=== PATIENT | male | born 1955 | race Caucasian/White ===

== ENCOUNTER 2024-06-16 23:14 | Observation (INO) | payer OTHER, SELFPAY ==
[2024-06-16 18:22] VITALS: BP 146/76
[2024-06-16 18:46] LABS: % Basophils 0.6 % (0-2); % Eosinophils 0.9 % (0-6); % Immature Granulocytes 0.7 % (0-0.5); % Lymphocytes 11.5 % (20.5-51.1); % Monocytes 5.3 % (1.7-9.3); Absolute Basophils 0.1 10^3/uL (0-0.2); Absolute Eosinophils 0.1 10^3/uL (0-0.7); Absolute Immature Granulocytes 0.1 10^3/uL (0-0.05); Absolute Lymphocytes 1.1 10^3/uL (1.2-3.4); Absolute Monocytes 0.5 10^3/uL (0.1-0.6); Absolute Neutrophils 7.7 10^3/uL (1.4-6.5); Hematocrit 40.7 % (39.0-52.0); Hemoglobin 13.8 g/dL (13.0-18.0); Mean Corp Hgb Conc. 33.9 g/dL (33.0-37.0); Mean Corpuscular Hgb 28.9 pg (27.0-31.0); Mean Corpuscular Volume 85.1 fL (80.0-94.0); Mean Platelet Volume 9.2 fL (7.4-10.4); Nucleated Red Blood Cells % 0 % (-); Platelet Count 351 10^3/uL (130-400); Red Blood Cell Count 4.78 10^6/uL (4.70-6.10); Red Cell Dist. Width 11.9 % (11.5-14.5); White Blood Cell Count 9.6 10^3/uL (4.8-10.8)
[2024-06-16 19:09] LABS: ALT (SGPT) 28 U/L (0-50); AST (SGOT) 26 U/L (17-59); Alkaline Phosphatase 73 U/L (38-126); Blood Urea Nitrogen 26 mg/dl (9-20); Calcium 9.6 mg/dl (8.4-10.2); Carbon Dioxide 27 mmol/L (22-30); Chloride 102 mmol/L (98-107); Glucose 98 mg/dl (70-99); Potassium 4.3 mmol/L (3.5-5.1); Sodium 137 mmol/L (135-145); eGFR > 60.00
[2024-06-16 21:14] VITALS: BP 131/88
--- NOTE | 2024-06-16 21:42 | ED.GENMED ---
History of Present Illness
General
Chief Complaint: Rectal Bleeding
Source: patient and spouse
Exam Limitations: dementia
Time Seen by Provider: 06/16/24 21:17
History of Present Illness
History of Present Illness:
This is a 68-year-old male who presents after he had an episode of vomiting dark/black vomitus Saturday night. They were out to dinner and he started belching and vomiting in a car and then later that night vomited the dark vomitus. Today he
followed up with the PCP who did a rectal exam found him that he positive stools. states that PCP advised him to come to the emergency department. She states he otherwise has been normal. He has had no further vomiting. he is not
anticoagulated. He did take a dose of ibuprofen today but does not take it regularly. denies any Pepto-Bismol or iron supplements. Patient offers no complaints
Past History
Past History
ED Past Medical History: Other (Dementia)
Phy Exam
Physical Exam
Physical Exam:
CONSTITUTIONAL Patient alert and oriented to person, place . Well-appearing. Vital signs reviewed.
HEAD atraumatic, normocephalic.
EYES eyelids normal to inspection, Extraocular muscles intact, Conjunctiva normal, Sclera normal.
NECK normal range of motion, Trachea midline, no jugular venous distention.
RESPIRATORY CHEST No respiratory distress noted, Chest expansion equal
ABDOMEN abdomen nontender, Bowel sounds normal. No distention.
Rectal exam strongly heme positive melena/dark stool
BACK normal inspection, no obvious deformities
UPPER EXTREMITY range of motion normal, Motor strength normal, no cyanosis, no edema.
LOWER EXTREMITY range of motion normal, Motor strength normal, no cyanosis, no edema.
NEURO Speech normal, No focal motor deficits, Cranial Nerves intact to screening exam.
SKIN skin warm, dry, and normal in color.
Course
Orders/Labs/Results
Orders:
Orders
06/16/24 18:35
CMP [Comprehensive Metabolic Panel] Urgent
Complete Blood Count/With Diff Urgent
06/16/24 21:39
Pantoprazole [Protonix IV] 40 mg IV NOW STA
Abnormal Lab Results
06/16/24
18:35
Abs Immat Gran (auto) 0.1 H 10^3/uL
(0-0.05)
Absolute Neuts (auto) 7.7 H 10^3/uL
(1.4-6.5)
Absolute Lymphs (auto) 1.1 L 10^3/uL
(1.2-3.4)
Immature Gran % 0.7 H %
(0-0.5)
Neutrophils % 81.0 H %
(42.2-75.2)
Lymphocytes % 11.5 L %
(20.5-51.1)
BUN 26 H mg/dl
(9-20)
Total Protein 6.0 L g/dl
(6.3-8.2)
06/16/24 18:35
06/16/24 18:35
Vital Signs
Initial and Last Documented VS:
Initial Vital Signs
Temp Pulse Resp BP Pulse Ox
98.5 F 82 18 146/76 98
06/16/24 18:22 06/16/24 18:22 06/16/24 18:22 06/16/24 18:22 06/16/24 18:22
Last Documented Vital Signs
Temp Pulse Resp BP Pulse Ox
98.5 F 82 18 131/88 100
06/16/24 18:22 06/16/24 18:22 06/16/24 18:22 06/16/24 21:14 06/16/24 21:15
MDM/Problems Addressed
Differential Diagnosis Includes:
Gastric erosions, duodenal ulcer, gastric ulcer
MDM/Problems Addressed:
GI bleed
*Pulse Oximetry
Patient hypoxic: no
*Master Control Supervisor Interpretation
Rate: normal
Interpretation: normal
Rhythm: sinus
*Critical Care Note
Total Time (30-74mins, 75-104mins- exclusive of procedures): Not Applicable
Data Reviewed
Source: patient and family
Further Testing Considered But Not Given:
Consider CT but abdomen soft nontender
Patient Management
Discussion with other providers: Quitline Counselor (Case cussed with gastroenterology)
Escalation/DeEscalation of care consider admission/obs:
68-year-old male who presents with GI bleeding. Does have a stable hemoglobin. Did have black vomitus earlier in the week. Now with dark/black stools. IV Protonix given. Given his dementia, will admit for close monitoring and repeat hemoglobin.
ED Attending Note
-
Portions of this chart may have been created with voice recognition software.� Occasional wrong word or��sound alike� substitutions may have occurred due to the inherent limitations of voice recognition software.
Discharge Plan
Departure
Patient Disposition: Admit
Date of Disposition: 06/16/24
Time of Disposition: 21:57
Presentation/result/management discussed w/ accepting MD/DO: Hospitalist
Discharge Problem:
Acute upper gastrointestinal bleeding
Prescriptions:
No Action
donepezil 23 mg Tablet
23 mg PO HS
Referrals:
Evon Conti CRNP [Family Provider] -
Interventions
Interventions:
*Risk Screen - Suicide Last Done: 06/16/24 18:22
*General Assessment Last Done: 06/16/24 18:22
*Neglect/Abuse Screening Last Done: 06/16/24 21:19
*ED COVID-19 Vaccine History Last Done: 06/16/24 18:22
XK-Rsuaes-Gveqijuquh Assessment Last Done: 06/16/24 21:19
ED- Cardiac Assessment Last Done: 06/16/24 21:19
ED- Pulmonary Assessment Last Done: 06/16/24 21:19
Discharge Date and Time
Print Language: KAZAKH
[2024-06-16 22:00] VITALS: BP 112/64
[2024-06-16 22:13] VITALS: BMI 21.7
--- NOTE | 2024-06-16 22:14 | HPS.HSE ---
Addendum entered and electronically signed by Dutch Dang DO 06/16/24 23:34:
Patient seen and examined independently. Agree with findings and plan as set forth by HELLEN Ro.
Patient is a 68y M with PMH significant for Lewy Body Dementia who presents to ED for evaluation of GI bleeding. Patient had episode of emesis Saturday PM that was dark appearing. Yesterday he complained of sore throat and cough. Today he was
seen by his PCP for evaluation and rectal exam done in the office there was heme positive. He was sent to the ED for evaluation. Here in the ED patient has dark, heme positive stool. Hgb / vitals are stable.
Ass:
GI Bleeding
Lewy Body Dementia
Plan:
Observe overnight for further evaluation and treatment.
IV PPI.
NPO.
Follow for any recurrent blood loss / emesis / etc.
GI evaluation in the AM for additional recommendations.
Original Note:
Family Physician
-
Family Physician: HELLEN Ramirez
Chief Complaint
-
dark emesis
History of Present Illness
Patient is a 68-year-old male with past medical history significant for dementia who presented to [facility] ED for evaluation of dark/black emesis Saturday evening. Patients at bedside to assist with HPI and history. She reports that
they went to dinner Saturday night and on the card ride home patient had an episode of dark emesis and then a second time later that night at home. He has not had any emesis since then. Yesterday patient complained of sore through and cough, so this
morning she scheduled him an appointment at the primary care provider who heme tested patients stool and was positive. Primary referred patient to ED for evaluation and treatment. Denies any fever, chills, shortness of breath, chest pain,
constipation, diarrhea or urinary symptoms.
Medical History
Past Medical History
Past Medical History: Reports Other
Additional Past Medical History:
dementia
Past Surgical History: Reports Other
Additional Past Surgical History:
b/l shoulder surgery
Social History
Unable to obtain full social history at this time due to: Dementia
Tobacco: Former Smoker
Alcohol: Occasional
Drug: None
Personal:
Living: With Family
Employment: Retired
Family History
Family History: Other (Father: Alzheimer's )
Allergies / Home Medications
Allergies reflects when Allergies were last updated in [employer].
Home Medications with original date entered in [employer]
Allergy/Medication List:
Allergies
Allergy/AdvReac Type Severity Reaction Status Date / Time
No Known Allergies Allergy Unverified 06/16/24 18:25
Home Medications
donepezil 23 mg tablet 23 mg PO HS 06/16/24
Review of Systems
-
History Source: Patient
Constitutional: Reports No Symptoms
EENT: Reports No Symptoms
Respiratory: Reports No Symptoms
Cardiac: Reports No Symptoms
Abdomen/GI: Reports Nausea and Vomiting
: Reports No Symptoms
Musculoskeletal: Reports No Symptoms
Skin: Reports No Symptoms
Neurological: Reports No Symptoms
Endocrine: Reports No Symptoms
Hematologic/Lymphatic: Reports No Symptoms
Psych: Reports No Symptoms
Physical Exam
Vital Signs
Vital Signs
Temp Pulse Resp BP Pulse Ox
98.5 F 82 18 131/88 100
06/16/24 18:22 06/16/24 18:22 06/16/24 18:22 06/16/24 21:14 06/16/24 21:15
Physical Exam
General: Well Developed, Well Nourished, No Apparent Distress and Comfortable
HEENT: NormoCephalic, Moist mucous membranes, Atraumatic, [place] Conjunctivae, Nose Appears Normal and Ears Appear Normal
Respiratory: Clear and Non Labored Respirations
Cardiac: S1/S2 and Regular Rhythm; No Murmur, Rub or Gallop
Breast: Deferred by me
GI: Soft, Non Tender, Non Distended and Normal Bowel Sounds; No Organomegaly
Rectal: Hem Positive
Genito-urinary: Deferred by me
Musculoskeletal: No Clubbing, No Cyanosis and No Edema
Skin: Warm and IV/Catheter Site; No Rash
Neuro: Awake, Alert, AO x 3 and Nonfocal/grossly intact
Psych: Calm and Intact Judgment/Insight
Laboratory Results
-
06/16/24 18:35
06/16/24 18:35
Laboratory Results
Total Bilirubin 1.0 mg/dl (0.2-1.3) 06/16/24 18:35
AST 26 U/L (17-59) 06/16/24 18:35
ALT 28 U/L (0-50) 06/16/24 18:35
Alkaline Phosphatase 73 U/L (38-126) 06/16/24 18:35
Data Reviewed
-
Lab Data: Labs Reviewed by me (Hgb 13.8, Hct 40.7)
Impression/Plan
-
IMPRESSION/PLAN:
#GI bleed
episode of dark/black emesis Saturday night
stool heme positive in primary care office today
Hgb 13.8, Hct 40.7
- admit to telemetry
- IV Protonix
- NPO
- consult GI
#dementia
- continue donepezil
Code status: code status
DVT prophylaxis: SCDs
[2024-06-16] MEDS: PROTONIX IV 40 MG IV (22:18)
[2024-06-17] VITALS (13 sets, daily range): BP systolic 14–140; BP diastolic 56–86; BMI 21.0
--- NOTE | 2024-06-17 06:57 | CON.GI ---
Addendum entered and electronically signed by Joanne Orta MD 06/17/24 12:33:
I saw and examined the patient.
The BOW STRING MAKER's note was reviewed and I agree with the note.
Comment: This is a 68-year-old male with past medical history of Lewy body dementia who had an episode of dark emesis on Saturday night and was seen by PCP and was noted to have heme positive stools and was also noted to have heme positive dark
stools in the ER and admission hemoglobin is 13.8 with a mildly elevated BUN. Patient's is able to provide history. He rarely uses NSAIDs and did take 1 yesterday but no prior history of upper GI bleed. His last colonoscopy was a few years
ago per over 5 years ago. He also has had a almost a 50 pound weight loss since his dementia diagnosis in 2022 as per his appetite is pretty good. He does have occasional reflux and uses Tums as needed.
Assessment and plan coffee-ground emesis on Saturday and also has had heme positive stools possible related to esophagitis vs gastritis or PUD. He only has occasional use of NSAIDs and was not on aspirin either prior to admission. Will schedule
him for an endoscopy. He is currently on Protonix twice daily. Hb stable
Original Note:
Consultation
-
Date/Time Consultation Requested: 06/17/24 0140
Date/Time Consultation Performed: 06/17/24 0700
Requesting Provider: HELLEN Ro
Performing Provider: HELLEN Ng, Joanne Orta MD
Reason for Consultation: hematemesis/heme + dark stools
Medical History
Chief Complaint / HPI
Chief Complaint: vomtiing dark emesis
History of Present Illness:
Pt is a 68yo with hx lewy body dementia and prior shoulder surgery with onset of vomiting dark emesis on Saturday night. He was seen by PCP and noted with heme + stools. In ER noted with heme + melena. On admission hbg 13.8 with BUN 26. In
review with patient and family no hx prior GI bleeding. Rare NSAID use. Occasional GERD with tums use as needed and occasional pill dysphagia. Pt has has 55 lb wt loss since dementia diagnosis in 2022. Pt otherwisse denies odynophagia,
abdominal pain, constipation with last stool day prior to admission, blood or black stools. No hx EGD. Last colonoscopy years ago and does not recall any abnormal finding. No anticoagulation prior to admission.
Past Medical History
Past Medical History: Other (lewy body dementia)
Past Surgical History: Orthopedic (shoulder surgery )
Social History
Tobacco: Former Smoker
Alcohol: None
Drug: None
Personal:
Living: With Family
Employment: Retired
Family History
Family History: Other (no family hx colon CA or polyps)
Allergies / Home Medications
Allergy/AdvReac Type Severity Reaction Status Date / Time
No Known Allergies Allergy Unverified 06/16/24 18:25
�Medication �Instructions �Recorded
donepezil 23 mg tablet 23 mg PO HS 06/16/24
Review of Systems
-
Unable to obtain full review of systems at this time due to: Dementia
History Source: Patient and Family
Constitutional: Reports Weight Loss ( 55 lbs with dementia diagnosis )
EENT: Reports No Symptoms
Respiratory: Reports No Symptoms
Cardiac: Reports No Symptoms
Abdomen/GI: Reports Nausea, Vomiting (with dark emesis ), Black Stools and Other (occasional GERD and pill dysphagia )
: Reports No Symptoms
Musculoskeletal: Reports No Symptoms
Skin: Reports No Symptoms
Neurological: Reports Weakness
Endocrine: Reports No Symptoms
Hematologic/Lymphatic: Reports Bleeding
Vital Signs
Temp Pulse Resp BP Pulse Ox
98.5 F 82 18 112/64 99
06/16/24 18:22 06/16/24 18:22 06/16/24 18:22 06/16/24 22:00 06/16/24 22:30
Physical Exam
Exam
General: Well Developed, Well Nourished and No Apparent Distress
HEENT: Normocephalic and Anicteric
Respiratory: Clear
Cardiac: Regular Rhythm
GI: Soft, Non Tender and Non Distended
Musculoskeletal: No Clubbing and No Cyanosis
Skin: Warm and Dry
Neuro: Awake, Alert and Other (answers some one word answers and some nodding to questions , noted with open mouth for most of exam )
Psych: Calm
Results
WBC Cancelled 06/17/24 06:36
Hgb Cancelled 06/17/24 06:36
Hct Cancelled 06/17/24 06:36
MCV Cancelled 06/17/24 06:36
Plt Count Cancelled 06/17/24 06:36
Absolute Neuts (auto) 7.7 10^3/uL (1.4-6.5) H 06/16/24 18:35
Sodium 137 mmol/L (135-145) 06/16/24 18:35
Potassium 4.3 mmol/L (3.5-5.1) 06/16/24 18:35
Chloride 102 mmol/L (98-107) 06/16/24 18:35
Carbon Dioxide 27 mmol/L (22-30) 06/16/24 18:35
BUN 26 mg/dl (9-20) H 06/16/24 18:35
Creatinine 0.9 mg/dL (0.7-1.3) 06/16/24 18:35
Calcium 9.6 mg/dl (8.4-10.2) 06/16/24 18:35
Total Bilirubin 1.0 mg/dl (0.2-1.3) 06/16/24 18:35
AST 26 U/L (17-59) 06/16/24 18:35
ALT 28 U/L (0-50) 06/16/24 18:35
Alkaline Phosphatase 73 U/L (38-126) 06/16/24 18:35
Diagnostic Image Results:
Prior GI Procedures:
EGD: none
Colonoscopy: years ago did not recall any abnormal findings
Assessment / Plan
-
Pt is a 68yo with hx lewy body dementia and prior shoulder surgery with onset of vomiting dark emesis on Saturday night. He was seen by PCP and noted with heme + stools. In ER noted with heme + melena. On admission hbg 13.8 with BUN 26. Rare
NSAID use and no Anticoagulation use prior to admission. No hx EGD in past.
-hematemesis/heme + melena in ER
-lewy body dementia
-wt loss since dementia diagnosis
-occasional GERD - tums PRN
-occasional pill dysphagia
PLAN:
etiology of bleeding related to PUD, esophagitis, vs other
plan for EGD today
cont PPI BID
cont NPO
NSAID avoidance
monitor for recurrent symptoms
if EGD neg consider colonoscopy but unsure if patient would be able to proceed with prep
updated and will be present to consent for procedure with hx dementia
-
-
Thank you for consultation and allowing me to participate in the patient's care. Please call the [employer] GI physician during the after hours with any questions or concerns.
--- NOTE | 2024-06-17 08:08 | W.PN.HOSP.TC ---
Today's Communication/Plan
-
Discharge home
Assessment / Plan
Assessment / Plan
HPI: 68y M with PMH significant for Lewy Body Dementia who presents to ED for evaluation of GI bleeding. Patient had episode of emesis Saturday PM that was dark appearing. Yesterday he complained of sore throat and cough. Today he was seen by
his PCP for evaluation and rectal exam done in the office there was heme positive. He was sent to the ED for evaluation. Here in the ED patient has dark, heme positive stool. Hgb / vitals are stable.
#Hematemesis
episode of dark/black emesis Saturday night
stool heme positive in primary care office today
Appreciate GI input, 06/17 EGD shows esophagitis, hiatal hernia, nonbleeding duodenal ulcers with no stigmata of bleeding
GI recommends pantoprazole 40 mg twice a day for 4 weeks, then daily
Patient/ counseled to avoid all dycq-dor-zneilbt NSAIDs
Medically stable for discharge today
Follow-up with GI in the office in 4-6 weeks
#Dementia
Continue donepezil
DVT prophylaxis: SCDs
Updated on phone 06/17
Physical Exam
General: No acute distress
HEENT: Normocephalic, Atraumatic, EOMI, MMM
Respiratory: Clear to Auscultation bilaterally
Cardiac: Normal S1/S2, Regular Rate and Rhythm
GI: Soft, Nontender, Nondistended, Normal Bowel Sounds
Extremities: No Clubbing, Cyanosis, or Edema
Neuro: Pleasantly confused
Anticipated Discharge: Today
Subjective/Interval History
-
Date of Service: June 17, 2024
No recurrence of hematemesis. No fever, no vomiting.
Objective Data
-
Labs:
Laboratory Results
06/17/24
06:36
WBC Cancelled
Hgb Cancelled
Hct Cancelled
Plt Count Cancelled
Vital Signs:
Vital Signs
Temp Pulse Resp BP Pulse Ox
98.5 F 82 18 112/64 99
06/16/24 18:22 06/16/24 18:22 06/16/24 18:22 06/16/24 22:00 06/16/24 22:30
[2024-06-17] MEDS: PROTONIX IV 40 MG IV (09:06)
[2024-06-17] MEDS: NSS (PRESERVATIVE FREE) 10 ML IV (09:06)
[2024-06-17 13:12] LABS: Hematocrit 36.5 % (39.0-52.0); Hemoglobin 12.5 g/dL (13.0-18.0); Mean Corp Hgb Conc. 34.2 g/dL (33.0-37.0); Mean Corpuscular Hgb 29.1 pg (27.0-31.0); Mean Corpuscular Volume 85.1 fL (80.0-94.0); Mean Platelet Volume 9.1 fL (7.4-10.4); Platelet Count 321 10^3/uL (130-400); Red Blood Cell Count 4.29 10^6/uL (4.70-6.10); Red Cell Dist. Width 11.9 % (11.5-14.5); White Blood Cell Count 6.5 10^3/uL (4.8-10.8)
--- NOTE | 2024-06-17 16:24 | TRANSFER ---
Pt transferred to 335 from PACU. Transferred via bed. VSS, oriented to room. at bedside. answered admission questions, pt Ax1 (self). On room air, no complaints of pain at this time.
--- NOTE | 2024-06-17 17:27 | W.DCSUMMARY ---
Discharge Summary
Discharge Data
Date of Admission: 06/16/24
Date of Discharge: 06/17/24
-
Pending Results: No
Hospital Course
Discharge diagnosis:
Hematemesis
Lucio's esophagus with esophagitis
Nonbleeding duodenal ulcers
Hiatal hernia
Lewy body dementia
Consults: GI
Procedures:
06/17/2024 EGD
Impression: - [place]-colored mucosa suggestive of short-segment
Lucio's esophagus. Biopsied.
- [place] Grade B reflux esophagitis with no bleeding.
- Non-obstructing Schatzki ring.
- Small hiatal hernia.
- Non-bleeding duodenal ulcers with no stigmata of
bleeding.
- Normal first portion of the duodenum and second
portion of the duodenum.
Recommendation: - Continue present medications.
- Await pathology results.
- Repeat upper endoscopy for surveillance based on
pathology results.
- Use Protonix (pantoprazole) 40 mg PO BID x 4 weeks
and then daily.
- No ibuprofen, naproxen, or other non-steroidal
anti-inflammatory drugs.
Hospital course:
68-year-old male with a past medical history of Lewy body dementia was admitted for 1 episode of hematemesis that occurred 2 days prior to admission. Patient was seen in conjunction with GI. He had an EGD which showed Lucio's esophagus,
esophagitis, hiatal hernia, nonbleeding duodenal ulcers with no stigmata of bleeding. Patient was treated with IV Protonix. GI recommends discharge on Protonix 40 mg twice a day for 4 weeks, then daily. He and his have been counseled to
avoid all yglt-xqt-oefmunc NSAID medications. He needs to follow-up with GI in the office in 4-6 weeks, as well as his primary care doctor in 1 week.
Disposition: Home self-care
Discharge planning: Required 39 minutes
Discharge Plan
-
Patient Disposition: Home (Routine Discharge)
Discharge Diagnosis/Procedures: Hematemesis, esophagitis, duodenal ulcer, dementia
Condition: Good
Diet: Regular
Activity: As tolerated
Activity Restrictions/Additional Instructions:
Please avoid all ahjx-gim-qghvmwk NSAID medications such as ibuprofen, naproxen, Aleve, Motrin, Advil.
These medications will cause bleeding in your stomach.
GI recommends pantoprazole 40 mg twice a day for 4 weeks, then daily.
Follow-up with GI in the office in 4-6 weeks, and your PCP in 1 week.
Referrals:
Evon Conti CRNP [Family Provider] - in one week
Joanne Orta MD [Active] - in four to six weeks
Prescriptions:
New
pantoprazole 40 mg tablet,delayed release (DR/EC)
40 mg PO BID 28 Days Qty: 56 0RF
Continued
donepezil 23 mg Tablet
23 mg PO HS
Discharge Orders:
Discharge Patient (As Directed); Ordered 06/17/24
Ordered By: Nigel Perera
Discharge Date and Time
Discharge Date/Time: 06/17/24 18:36
Print Language: SLOVENIAN
== END 2024-06-17 18:36 | disposition home or self-care (01) ==
LOC: 3 WEST ACU 23:14
PROVIDERS: Emergency Medicine; ADMITTING PHYSICIAN Hospitalist; ATTENDING PHYSICIAN Family Medicine; EMERGENCY PHYSICIAN Emergency Medicine; FAMILY PHYSICIAN Nurse Practitioner Family; OTHER PHYSICIAN Internal Medicine Gastroenterology
PROC: 0DB58ZX Excision of Esophagus, Via Natural or Artificial Opening Endoscopic, Diagnostic (ICD-10-PCS; 2024-06-17)
DX: K21.01 Gastro-esophageal reflux disease with esophagitis, with bleeding (principal); K22.70 Barrett's esophagus without dysplasia; K62.5 Hemorrhage of anus and rectum; K26.4 Chronic or unspecified duodenal ulcer with hemorrhage; F02.80 Dementia in other diseases classified elsewhere, unspecified severity, without behavioral disturbance, psychotic disturbance, mood disturbance, and anxiety; G31.83 Neurocognitive disorder with Lewy bodies; R05.9 Cough, unspecified; J02.9 Acute pharyngitis, unspecified; K44.9 Diaphragmatic hernia without obstruction or gangrene; K22.2 Esophageal obstruction; K22.89 Other specified disease of esophagus; Z87.891 Personal history of nicotine dependence
CPT/HCPCS: 43239; 88305; 80053; 85025; 85027; 87070; G0378

== ENCOUNTER 2024-10-30 21:00 | Emergency (ER) | payer OTHER, SELFPAY ==
[2024-10-30 21:05] VITALS: BP 143/62
[2024-10-30 21:32] LABS: Hematocrit 42.9 % (39.0-52.0); Hemoglobin 14.8 g/dL (13.0-18.0); Mean Corp Hgb Conc. 34.5 g/dL (33.0-37.0); Mean Corpuscular Volume 84.6 fL (80.0-94.0); Nucleated Red Blood Cells % 0 % (-); Platelet Count 291 10^3/uL (130-400); Red Cell Dist. Width 12.4 % (11.5-14.5)
[2024-10-30 21:41] LABS: ALT (SGPT) 20 U/L (0-50); AST (SGOT) 21 U/L (17-59); Albumin 4.8 g/dl (3.5-5.0); Alkaline Phosphatase 64 U/L (38-126); Blood Urea Nitrogen 20 mg/dl (9-20); Calcium 9.8 mg/dl (8.4-10.2); Carbon Dioxide 29 mmol/L (22-30); Chloride 102 mmol/L (98-107); Glucose 123 mg/dl (70-99); Lipase 77 U/L (23-300); Potassium 5.2 mmol/L (3.5-5.1); Sodium 136 mmol/L (135-145); Total Protein 7.0 g/dl (6.3-8.2); eGFR > 60.00
--- NOTE | 2024-10-30 22:56 | ED.GENMED ---
History of Present Illness
<HELLEN Guerrero - Last Filed: 10/31/24 19:28>
General
Chief Complaint: Abdominal Pain
Source: spouse
Exam Limitations: dementia
Time Seen by Provider: 10/30/24 22:11
Nursing documentation reviewed up to this point in time: agreed with
History of Present Illness
History of Present Illness:
Patient is a 69-year-old male who presents to the ER. Patient has a history of, hiatal hernia, nonbleeding duodenal ulcers dementia Lewy bodies dementia, Lucio's esophagus with esophagitis and spouse is giving history. She reports patient
started to complain pain in the right groin around dinnertime and she noticed patient's swelling to the groin before they were getting ready to go to bed. He is not able to give history.
Past History
<HELLEN Guerrero - Last Filed: 10/31/24 19:28>
Past History
ED Past Medical History: Other (Dementia)
Phy Exam
<HELLEN Guerrero - Last Filed: 10/31/24 19:28>
General Physical Exam
General Presentation: no apparent distress
General age: appears stated age
General Skin: warm and dry
General Habitus: normal
General Mental: alert
Gastrointestinal Exam
Gastrointestinal Exam: soft and other (tender firm raised palpable lump to right inguinal region )
Neurological Exam
Neurological Exam: alert
Musculoskeletal Exam
Musculoskeletal Exam: full ROM
Skin Exam
Skin Exam: normal color
Psychiatric Exam
Psychiatric Exam: normal mood/affect
Course
<HELLEN Guerrero - Last Filed: 10/31/24 19:28>
Orders/Labs/Results
Orders:
Orders
10/30/24 21:14
Complete Blood Count/With Diff Urgent
Comprehensive Metabolic Panel Urgent
Lactic Acid Urgent
Lipase Urgent
10/30/24 23:06
0.9% Sodium Chloride 500 ml [Nss] 500 ml IV BOLUS
HYDROmorphone [Dilaudid] 0.5 mg IV NOW STA
10/31/24 00:00
CT Abd/pelvis W Iv Cont Urgent
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
Abnormal Lab Results
10/30/24
21:14
WBC 18.7 H 10^3/uL
(4.8-10.8)
Abs Immat Gran (auto) 0.1 H 10^3/uL
(0-0.05)
Absolute Neuts (auto) 17.1 H 10^3/uL
(1.4-6.5)
Absolute Lymphs (auto) 0.5 L 10^3/uL
(1.2-3.4)
Absolute Monos (auto) 1.0 H 10^3/uL
(0.1-0.6)
Neutrophils % 91.5 H %
(42.2-75.2)
Lymphocytes % 2.4 L %
(20.5-51.1)
Potassium 5.2 H mmol/L
(3.5-5.1)
Glucose 123 H mg/dl
(70-99)
10/30/24 21:14
10/30/24 21:14
Vital Signs
Initial and Last Documented VS:
Initial Vital Signs
Temp Pulse Resp BP Pulse Ox
98.0 F 84 20 143/62 98
10/30/24 21:05 10/30/24 21:05 10/30/24 21:05 10/30/24 21:05 10/30/24 21:05
Last Documented Vital Signs
Temp Pulse Resp BP Pulse Ox
98.0 F 84 20 133/81 98
10/30/24 21:05 10/30/24 21:05 10/30/24 21:05 10/31/24 00:00 10/30/24 22:58
Telecommunications Officer consulted with Physician
Telecommunications Officer consulted with physician?: Yes (jack )
Name of Physician Consulted: Jack
<Quintin Santiago, DO - Last Filed: 10/31/24 01:48>
Orders/Labs/Results
Orders:
Orders
10/30/24 21:14
Complete Blood Count/With Diff Urgent
Comprehensive Metabolic Panel Urgent
Lactic Acid Urgent
Lipase Urgent
10/30/24 23:06
0.9% Sodium Chloride 500 ml [Nss] 500 ml IV BOLUS
HYDROmorphone [Dilaudid] 0.5 mg IV NOW STA
10/31/24 00:00
CT Abd/pelvis W Iv Cont Urgent
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
Abnormal Lab Results
10/30/24
21:14
WBC 18.7 H 10^3/uL
(4.8-10.8)
Abs Immat Gran (auto) 0.1 H 10^3/uL
(0-0.05)
Absolute Neuts (auto) 17.1 H 10^3/uL
(1.4-6.5)
Absolute Lymphs (auto) 0.5 L 10^3/uL
(1.2-3.4)
Absolute Monos (auto) 1.0 H 10^3/uL
(0.1-0.6)
Neutrophils % 91.5 H %
(42.2-75.2)
Lymphocytes % 2.4 L %
(20.5-51.1)
Potassium 5.2 H mmol/L
(3.5-5.1)
Glucose 123 H mg/dl
(70-99)
10/30/24 21:14
10/30/24 21:14
Vital Signs
Initial and Last Documented VS:
Initial Vital Signs
Temp Pulse Resp BP Pulse Ox
98.0 F 84 20 143/62 98
10/30/24 21:05 10/30/24 21:05 10/30/24 21:05 10/30/24 21:05 10/30/24 21:05
Last Documented Vital Signs
Temp Pulse Resp BP Pulse Ox
98.0 F 84 20 133/81 98
10/30/24 21:05 10/30/24 21:05 10/30/24 21:05 10/31/24 00:00 10/30/24 22:58
<HELLEN Guerrero - Last Filed: 10/31/24 19:28>
MDM/Problems Addressed
MDM/Problems Addressed:
Patient is a 69-year-old male with Lewy body dementia brought by for evaluation. Patient was complaining of pain in the right groin. On exam he has an obvious inguinal hernia. Patient was medicated for pain, ice applied and Dr Santiago was
able to successfully reduce it.
Patient is afebrile white count elevated 18,000 normal .
will check CAT scan.
care of pt signed out to ED physician
<HELLEN Guerrero - Last Filed: 10/31/24 19:28>
*Pulse Oximetry
SaO2: 98
Oxygen Mode of Delivery: Room air
Patient hypoxic: no
*Critical Care Note
Total Time (30-74mins, 75-104mins- exclusive of procedures): Not Applicable
<Quintin Santiago DO - Last Filed: 10/31/24 01:48>
Update Note
Update Note:
11:20 PM after IV pain medicine, I was able to reduce the hernia
1:43 AM vision radiology called indicating edema in the right lower quadrant. This is expected given the significant hernia. On multiple reassessments, patient remains well-appearing nontoxic. He no longer has right lower quadrant tenderness.
Discussed outpatient follow-up with general surgery
ED Attending Note
<HELLEN Guerrero - Last Filed: 10/31/24 19:28>
-
Portions of this chart may have been created with voice recognition software.� Occasional wrong word or��sound alike� substitutions may have occurred due to the inherent limitations of voice recognition software.
<Quintin Santiago DO - Last Filed: 10/31/24 01:48>
ED Attending Note
Patient seen and examined by attending physician: Yes
I performed the substantive portion of visit, reviewed & personally made and approve the management plan that is documented in note by myself or STEPHY.: Yes
ED Attending Note:
I have seen and evaluated the patient with a [id number] encounter. I have spoken to the advance practicer provider and involved in the medical history, the physical exam, medical decision making.
Evaluation and management service: agree unless noted differently below.
Results interpretation: agree unless noted differently below.
Focused HPI: 69-year-old male presenting with for evaluation of right groin pain. states this occurred just prior to arrival. states that he does strain often to go to the bathroom
Physical exam: Right inguinal hernia. No skin changes
Medical Decision Making: Will give pain medicine and attempt reduction
Discharge Plan
Departure
Patient Disposition: Home (Routine Discharge)
Date of Disposition: 10/31/24
Time of Disposition: 01:44
Patient with high blood pressure during this ER visit?: No
Discharge Problem:
Inguinal hernia
Instructions: Groin hernias
Prescriptions:
No Action
donepezil 23 mg Tablet
23 mg PO HS
pantoprazole 40 mg tablet,delayed release (DR/EC)
40 mg PO BID 28 Days Qty: 56 0RF
Referrals:
Evon Conti CRNP [Family Provider, Endocrinology]
Mo Barreto MD [Active, Surgical]
Activity Restrictions/Additional Instructions:
Please return for any worsening symptoms.
You may return at any time if you have further concerns.
Please follow up with your doctor at the first available appointment, preferably this week.
Please make an appointment to see the general surgeon.
For the time being, please take a daily stool softener to avoid straining.
Thank you for choosing [facility].
Interventions
Interventions:
*Risk Screen - Suicide Last Done: 10/30/24 23:21
*General Assessment Last Done: 10/30/24 21:05
*Neglect/Abuse Screening Last Done: 10/30/24 23:21
*Nursing Disposition Last Done: 10/31/24 01:55
SA-Jclvws-Nkyxoatoae Assessment Last Done: 10/30/24 22:00
Discharge Date and Time
Discharge Date/Time: 10/31/24 01:55
Print Language: BOTSWANAN
[2024-10-30 23:12] VITALS: BP 120/73
[2024-10-30] MEDS: NSS 500 IV (23:12)
[2024-10-30] MEDS: DILAUDID 0.5 MG IV (23:13)
[2024-10-31] VITALS: BP 133/81
== END 2024-10-31 01:55 | disposition home or self-care (01) ==
LOC: EMR 21:00
PROVIDERS: EMERGENCY PHYSICIAN Student in an Organized Health Care Education/Training Program; FAMILY PHYSICIAN Nurse Practitioner Family
DX: K40.90 Unilateral inguinal hernia, without obstruction or gangrene, not specified as recurrent (principal); G31.83 Neurocognitive disorder with Lewy bodies; F02.80 Dementia in other diseases classified elsewhere, unspecified severity, without behavioral disturbance, psychotic disturbance, mood disturbance, and anxiety; Z87.19 Personal history of other diseases of the digestive system
CPT/HCPCS: 96374; 99284; 74177; 80053; 83605; 83690; 85025; Q9967

== ENCOUNTER 2025-01-04 16:03 | Inpatient (IN) | payer OTHER, SELFPAY ==
[2025-01-04] VITALS (10 sets, daily range): BP systolic 112–152; BP diastolic 62–82; BMI 20.5
[2025-01-04 12:18] LABS: Urine Character Clear (Clear)
[2025-01-04 12:24] LABS: Hematocrit 42.2 % (39.0-52.0); Hemoglobin 14.5 g/dL (13.0-18.0); Mean Corp Hgb Conc. 34.4 g/dL (33.0-37.0); Mean Corpuscular Volume 83.4 fL (80.0-94.0); Nucleated Red Blood Cells % 0 % (-); Platelet Count 262 10^3/uL (130-400); Red Cell Dist. Width 12.2 % (11.5-14.5)
[2025-01-04 12:29] LABS: INR 1.13; PT 14.8 Sec (11.4-14.6)
[2025-01-04 12:40] LABS: COVID-19 Antigen Negative (Negative)
[2025-01-04 12:42] LABS: ALT (SGPT) 26 U/L (0-50); AST (SGOT) 29 U/L (17-59); Albumin 4.3 g/dl (3.5-5.0); Alkaline Phosphatase 90 U/L (38-126); Blood Urea Nitrogen 21 mg/dl (9-20); Calcium 9.4 mg/dl (8.4-10.2); Carbon Dioxide 28 mmol/L (22-30); Chloride 104 mmol/L (98-107); Glucose 135 mg/dl (70-99); Potassium 4.3 mmol/L (3.5-5.1); Sodium 137 mmol/L (135-145); Total Protein 6.5 g/dl (6.3-8.2); eGFR > 60.00
[2025-01-04 13:28] LABS: Urine Red Blood Cell 0-2 /HPF (0-2); Urine Squamous Cell 0-2 /LPF (Few); Urine White Cell 0-2 /HPF (0-5)
--- NOTE | 2025-01-04 14:06 | ED.GENMED ---
History of Present Illness
General
Chief Complaint: Fall
Source: patient and ambulance crew
Exam Limitations: dementia
Time Seen by Provider: 01/04/25 14:05
Nursing documentation reviewed up to this point in time: agreed with
History of Present Illness
History of Present Illness:
Note:
CHIEF COMPLAINT(S)
Fall with potential injury.
HISTORY OF PRESENT ILLNESS
The patient is a 69-year-old male who experienced a fall last night while upstairs at home. According to the patient�s spouse, he was in the bedroom and fell in the hallway. When the spouse turned around, she found him on the floor. There is no
notable bruising observed yet, and the patient has not been examined for possible hip fracture, although there were concerns about possible hip injury. The spouse mentioned no visible signs such as the leg appearing shorter or externally rotated,
which are typical of a hip fracture. There is a plan to consult with the orthopedic team, specifically a preference for [facility], due to prior visits and ongoing management with Dr. Mcdonald for knee and shoulder issues. The patient was
noted to appear dry, having last consumed fluids last night.
CHRONIC MEDICAL CONDITIONS SIGNIFICANTLY AFFECTING CARE
The patient has a history of dementia.
SOCIAL DETERMINANTS AFFECTING HEALTH
The spouse mentioned the patient has dementia, which impacts his daily care and requires regular medical follow-ups.
PHYSICAL EXAM
General: Alert, no acute distress.
Skin: Warm, dry.
Head: Normocephalic, atraumatic.
Neck: Supple, trachea midline.
Eye Ears, nose, mouth and throat: Oral mucosa moist.
Cardiovascular: Normal peripheral perfusion, No edema.
Respiratory: Respirations are non-labored.
Gastrointestinal : Abdomen nondistended.
Back: Normal range of motion, Normal alignment.
Musculoskeletal: Normal ROM, normal strength.
Neurological: Alert and oriented to person, place, time, and situation, No focal neurological deficit observed.
Psychiatric: Cooperative, appropriate mood & affect.
PLAN
1. Consult the orthopedic team, with a preference for [facility], for evaluation of potential injuries related to the fall.
2. Monitor and maintain hydration status, considering the patient appears dry and has not consumed fluids since last night.
3. Obtain necessary clearance and coordination for potential surgery, keeping in mind the patients last liquid intake.
DIFFERENTIAL DIAGNOSIS
The Differential Diagnosis includes, in no particular order and is not limited to:
1. Hip fracture
2. Dehydration
3. Dementia-related fall risk
4. Orthostatic hypotension
5. Vertigo
6. Electrolyte imbalance
7. Urinary tract infection
8. Cardiac arrhythmias
9. Cerebrovascular accident
10. Peripheral neuropathy
CARE-UPDATE
01/04/25 - 14:39
Patient exhibits a fever of 100.8�F and mild leukocytosis; however, no infectious source has been identified upon evaluation. Orthopedics has been consulted and plans to take the patient to the OR tomorrow, contingent upon the results of the
hospitalists evaluation. The patient will be admitted to the hospitalist team for further assessment and management of his current condition.
EKG
My independent EKG interpretation is:
- Time of EKG: Not specified
- Rhythm: Normal sinus rhythm with premature atrial complexes
- Heart Rate: 79 bpm
- LA Interval: Normal
- QRS Duration: Normal
- QT Interval: Normal
- [place]: Normal
- Abnormalities: Premature atrial complexes
- ST Segment: Normal
Disposition:
SUMMARY OF ENCOUNTER
The patient, a 69-year-old male with a history of dementia, presented to the emergency department following a fall at home with concerns for a potential hip injury. Although the physical exam did not reveal signs typical of a hip fracture, the
patient exhibited a fever of 100.8�F and mild leukocytosis. Given these findings and the patients recent fall, the patient was evaluated for possible fractures and the source of infection. Coordination with the orthopedic team was essential given
the suspicion of a possible fracture.
DISPOSITION
Admit to the hospitalist team for further management.
ASSESSMENT
- Suspected left femoral neck fracture.
- Fever with no identified infectious source.
- Underlying dementia contributing to fall risk.
MANAGEMENT OF THE PATIENTS CARE WAS DISCUSSED WITH
Orthopedic consultation was obtained, and a decision was made to take the patient to the operating room tomorrow, pending evaluation results by the hospitalist team.
PLAN
1. Admit to hospitalist service for continued observation and management.
2. Telemetry monitoring due to the patients age and risk of cardiac events following a fall.
3. Level of care to be determined based on further assessments by both orthopedic and hospitalist teams.
4. Proceed with definitive management of left femoral neck fracture.
INDEPENDENT REVIEW OF LABS AND INTERPRETATION OF TESTS
My independent EKG interpretation is a normal sinus rhythm with premature atrial complexes.
MEDICAL DECISION MAKING
- Chronic conditions affecting care: Dementia (Lewy body dementia).
- Differential Diagnosis: Hip fracture, Dehydration, Dementia-related fall risk, Orthostatic hypotension, Vertigo, Electrolyte imbalance, Urinary tract infection, Cardiac arrhythmias, Cerebrovascular accident, Peripheral neuropathy.
Data:
- Category 3: Discussion of management with orthopedic surgeon for potential femoral neck fracture management and operation.
DIAGNOSIS
- Subcapital fracture of the left femoral neck (ICD-10: S72.012A).
- Fever, unexplained (ICD-10: R50.9).
- Dementia with Lewy bodies (ICD-10: G31.83).
Past History
Past History
ED Past Medical History: Other (Dementia)
Phy Exam
Physical Exam
Physical Exam:
.
Course
Orders/Labs/Results
Orders:
Orders
01/04/25 12:03
Electrocardiogram (*1) Urgent
Reason for Study: Other
Other Reason for Exam: Possible Sepsis
Cardiac Monitoring- Treatment ONCE
EKG- Treatment ONCE
IV Insert/Care/Rem.- Treatment PRN
Straight cath- Treatment ONCE
01/04/25 12:05
CR Chest Single View Urgent
Reason For Exam: fever
CR Hip - LT w/wo Pel 2-3 Vw* Urgent
Comment:
Reason For Exam: fall
Include a pelvis x-ray?: Yes
01/04/25 12:07
COVID-19 Antigen Urgent
Source: Nasal Swab
Blood Culture Q20M
LEX Source: Blood/Venous
Specimen Description:
Comment: Urgent from separate sites. If patient screens positive for possible sepsis
Influenza A+B Rapid Molecular Urgent
LEX Source: Nasal Swab
Specimen Description:
01/04/25 12:10
Complete Blood Count/With Diff Urgent
Comprehensive Metabolic Panel Urgent
Lactic Acid Q4H
Comment: ON ICE, CANCEL 2ND ORDER IF FIRST LACTIC ACID LEVEL <2
Prothrombin Time Urgent
Urinalysis Reflex To Culture Urgent
Date Specimen was Collected: 01/04/25
Time Specimen was Collected: 12:03
Urine Microscopic Reflex Cult Urgent
Blood Culture Q20M
LEX Source: Blood/Venous
Specimen Description:
Comment: Urgent from separate sites. If patient screens positive for possible sepsis
01/04/25 14:38
Type+Screen Urgent
Abnormal Lab Results
01/04/25
12:10
WBC 12.2 H 10^3/uL
(4.8-10.8)
Abs Immat Gran (auto) 0.1 H 10^3/uL
(0-0.05)
Absolute Neuts (auto) 10.8 H 10^3/uL
(1.4-6.5)
Absolute Lymphs (auto) 0.4 L 10^3/uL
(1.2-3.4)
Absolute Monos (auto) 0.9 H 10^3/uL
(0.1-0.6)
Neutrophils % 88.0 H %
(42.2-75.2)
Lymphocytes % 3.4 L %
(20.5-51.1)
PT 14.8 H Sec
(11.4-14.6)
BUN 21 H mg/dl
(9-20)
Glucose 135 H mg/dl
(70-99)
Total Bilirubin 1.8 H mg/dl
(0.2-1.3)
Urine Urobilinogen 2+ A
(Neg - 1+)
Urine Bacteria (Reflex) Few A
(Negative)
Urine Albumin (Reflex) 1+ A
(Neg - Trace)
01/04/25 12:10
01/04/25 12:10
Vital Signs
Initial and Last Documented VS:
Initial Vital Signs
Temp Pulse Resp BP Pulse Ox
100.8 F H 86 16 119/75 94
01/04/25 11:55 01/04/25 11:55 01/04/25 11:55 01/04/25 11:55 01/04/25 11:55
Last Documented Vital Signs
Temp Pulse Resp BP Pulse Ox
100.8 F H 86 17 119/75 97
01/04/25 11:55 01/04/25 12:19 01/04/25 12:19 01/04/25 11:55 01/04/25 14:07
*Pulse Oximetry
SaO2: 97
Patient hypoxic: no
*Critical Care Note
Total Time (30-74mins, 75-104mins- exclusive of procedures): Not Applicable
ED Attending Note
-
Portions of this chart may have been created with voice recognition software.� Occasional wrong word or��sound alike� substitutions may have occurred due to the inherent limitations of voice recognition software.
Discharge Plan
Departure
Patient Disposition: Admit
Date of Disposition: 01/04/25
Time of Disposition: 14:32
Admit to: Med/Surg
Presentation/result/management discussed w/ accepting MD/DO: Hospitalist
Patient with high blood pressure during this ER visit?: No
Condition: Fair
Discharge Problem:
Closed fracture of neck of left femur, Fever, Fall
Prescriptions:
No Action
donepezil 23 mg Tablet
23 mg PO HS
glycopyrrolate 2 mg tablet
2 mg PO BID
Respite Gummy
1 gummy PO TID
pantoprazole 40 mg tablet,delayed release (DR/EC)
40 mg PO DAILY
Referrals:
Oliva Ramos CRNP [Family Provider, Family Practice]
Interventions
Interventions:
*Risk Screen - Suicide Last Done: 01/04/25 11:55
*General Assessment Last Done: 01/04/25 11:55
*Neglect/Abuse Screening Last Done: 01/04/25 11:55
*ED COVID-19 Vaccine History Last Done: 01/04/25 11:55
ED-Musculoskeletal Assessment Last Done: 01/04/25 13:27
ED- Neurological Assessment Last Done: 01/04/25 13:27
ED-Skin Assessment Last Done: 01/04/25 13:27
Discharge Date and Time
Print Language: IRANIAN
--- NOTE | 2025-01-04 15:23 | HPS.HSE ---
Family Physician
-
Family Physician: Daphne Maria, DO
Chief Complaint
-
fall at home, L hip pain
History of Present Illness
Patient is a 69yo M with a pmh notable for Lewy body dementia who presents following a fall at home yesterday with worsening left hip pain.
Per , patient was in usual state of health yesterday evening while they were walking up the stairs at home went to bed. She heard a thump and turned around, saw patient lying on the floor. Denies any complaints of lightheadedness or dizziness
in the preceding days. Patient is independently ambulatory at baseline without assistance; just sometimes needs assistance getting up from chair and beginning movement. He was complaining of some left inner thigh pain after the fall, but it was
thought to be a muscle strain and they went to bed. The next morning (today), patient was still complaining of left inner thigh/groin pain�presented to ED.
Denies any recent unintentional weight loss or change in appetite. Denies any changes to medications in the preceding month. Denies any sick contacts or recent travel outside of the state. Denies any fever or chills at home in the week prior;
denies any chest pain, abdominal pain, diarrhea, nausea/vomiting, dysuria, cough.
In the ED T, patient was found to be febrile to 100.8 with leukocytosis (WBC 12.2). Lactic acid 1.4 within normal limits. Hip x-ray demonstrated acute displaced subcapital fracture of the left femoral neck. CXR demonstrated no cardiopulmonary
abnormality. Flu A/B and COVID were negative. UA without signs of UTI. EKG with normal sinus rhythm with some PACs.
Medical History
Past Medical History
Past Medical History: Reports Dementia (Lewy body) and Other (History upper GI bleed)
Past Surgical History: Reports None
Social History
Unable to obtain full social history at this time due to: Dementia
Personal:
Living: With Family (Lives at home with )
Family History
Family History: Not pertinent
Allergies / Home Medications
Allergies reflects when Allergies were last updated in [facility] [facility] [employer].
Home Medications with original date entered in [employer] [facility] [facility] [employer]
Allergy/Medication List:
NKDA
Review of Systems
-
Unable to obtain full review of systems at this time due to: Acuity
History Source: Family ()
Constitutional: Reports See HPI
Respiratory: Reports See HPI
Cardiac: Reports See HPI
Abdomen/GI: Reports See HPI
: Reports See HPI
Musculoskeletal: Reports See HPI
Neurological: Reports See HPI
Psych: Reports See HPI
Physical Exam
Vital Signs
Vital Signs
Temp Pulse Resp BP Pulse Ox
100.8 F H 86 17 119/75 97
01/04/25 11:55 01/04/25 12:19 01/04/25 12:19 01/04/25 11:55 01/04/25 14:07
Physical Exam
General: Well Developed, Appears in Distress and Other (Not verbalizing; distressed appearance on face; sometimes jerking arms)
HEENT: NormoCephalic and Anicteric
Respiratory: Non Labored Respirations
Cardiac: S1/S2 and Regular Rhythm
GI: Non Tender and Non Distended
Musculoskeletal: No Edema and Other (Left leg externally rotated; without edema, rash, erythema on bilateral LE)
Skin: Warm and Dry
Neuro: Other (Eyes closed, not speaking)
Laboratory Results
-
01/04/25 12:10
01/04/25 12:10
Laboratory Results
PT 14.8 Sec (11.4-14.6) H 01/04/25 12:10
INR 1.13 01/04/25 12:10
Lactic Acid Cancelled 01/04/25 16:15
Total Bilirubin 1.8 mg/dl (0.2-1.3) H 01/04/25 12:10
AST 29 U/L (17-59) 01/04/25 12:10
ALT 26 U/L (0-50) 01/04/25 12:10
Alkaline Phosphatase 90 U/L (38-126) 01/04/25 12:10
Data Reviewed
-
Critical Care Time (in minutes): 45
Diagnostic Radiology: Report Reviewed by me
Medical Tests (Nuc Med, Echo, EKG etc): Report Reviewed by me
Lab Data: Labs Reviewed by me
Impression/Plan
-
Patient is a 69yo M with a pmh notable for Lewy body dementia who presents following a fall at home yesterday with worsening left hip pain, found to have fracture of L femoral neck.
#Displaced subcapital fracture of the L femoral neck
Hip xray (01/04) demonstrating acute displaced subcapital L femoral neck fracture. Patient had fall at home on 01/03.
- Plan for OR with orthopedic surgery 01/05 evening
- NPO after breakfast 01/05
- Give 1mg morphine sulfate IV for pain
- Continue pain management: standing tylenol 650mg q4h; oxycodone 5 mg q4hr PRN
- Orthopedic surgery consulted, following
#Fever
#Leukocytosis
Fever 100.8 on presentation, leukocytosis 12.2. Patient with no suspected source of infection; CXR negative, UA negative, no abdominal tenderness, no diarrhea. Most likely fever and leukocytosis secondary to acute left hip fracture, inflammation,
pain.
- Follow blood cx
- Mgmt of L hip fracture as above
#Chronic
- Lewy body dementia - continue donepezil, glycopyrrolate
- Hx upper GI bleed - continue pantoprazole
#Global
- DVT ppx: lovenox
- Diet: regular, NPO at bfast tomorrow
- Code: full
- Dispo: lives at home w in 2-story home; likely rehab post-op prior to home; pending PT/OT eval post-op & case mgmt
--- NOTE | 2025-01-04 16:20 | CM ---
CM reviewed chart and met with pt's bedside in ED. Lives with in 2 story condo, [address].
Pt has Lewy Body Dementia, independent in ambulation at baseline, no assistive device. Needs assistance with ADLs and personal care.
Confirms prescription coverage.
No hx VN or SNF
PCP: Maggi Baeza at [facility]
[address]
CM will continue to follow for all discharge planning needs.
[2025-01-04] MEDS: MORPHINE SULFATE 1 MG IV (17:26)
--- NOTE | 2025-01-04 18:57 | PTCARENOTE ---
no delay received. pt only oriented to self. pt unable to communicate. at bedside. L hip shortened and rotated. plan of care updated. bed alarm placed. will monitor.
[2025-01-04] MEDS: LOVENOX 40 MG SC (20:05)
[2025-01-04] MEDS: TYLENOL PO (20:06)
[2025-01-04] MEDS: ROBINUL PO (22:42)
[2025-01-04] MEDS: ARICEPT PO (22:42)
[2025-01-05] MEDS: TYLENOL PO ×2 (01:23→03:51)
[2025-01-05 06:22] LABS: Hematocrit 40.6 % (39.0-52.0); Hemoglobin 14.2 g/dL (13.0-18.0); Mean Corp Hgb Conc. 35.0 g/dL (33.0-37.0); Mean Corpuscular Volume 82.9 fL (80.0-94.0); Nucleated Red Blood Cells % 0 % (-); Platelet Count 232 10^3/uL (130-400); Red Cell Dist. Width 12.1 % (11.5-14.5)
[2025-01-05 06:44] LABS: ALT (SGPT) 22 U/L (0-50); AST (SGOT) 26 U/L (17-59); Albumin 4.0 g/dl (3.5-5.0); Alkaline Phosphatase 83 U/L (38-126); Blood Urea Nitrogen 22 mg/dl (9-20); Calcium 9.0 mg/dl (8.4-10.2); Carbon Dioxide 26 mmol/L (22-30); Chloride 103 mmol/L (98-107); Estimated Creatinine Clearance 90 ml/min; Glucose 108 mg/dl (70-99); Potassium 4.3 mmol/L (3.5-5.1); Sodium 135 mmol/L (135-145); Total Protein 6.2 g/dl (6.3-8.2); eGFR > 60.00
--- NOTE | 2025-01-05 07:51 | W.PN.HOSP.TC ---
Addendum entered and electronically signed by Eliceo Nunez DO 01/06/25 12:57:
CDI: Stage 1 sacral pressure injury, POA
Original Note:
Today's Communication/Plan
-
- OR tomorrow for L femoral neck fracture
- NPO midnight
- Last dose lovenox tonight
- Continue pain mgmt as ordered
Assessment / Plan
Assessment / Plan
Patient is a 69yo M with a pmh notable for Lewy body dementia who presents following a fall at home yesterday with worsening left hip pain, found to have fracture of L femoral neck.
#Displaced subcapital fracture of the L femoral neck
Hip xray (01/04) demonstrating acute displaced subcapital L femoral neck fracture. Patient had fall at home on 01/03. CT head negative for ICH.
- Plan for OR with orthopedic surgery on 01/06
- NPO at midnight 01/05
- Continue pain management: standing tylenol 650mg q4h; oxycodone 5 mg q4hr PRN
- Orthopedic surgery consulted, following
#Fever
#Leukocytosis
Fever 100.8 on presentation, leukocytosis 12.2. Patient with no suspected source of infection; CXR negative, UA negative, no abdominal tenderness, no diarrhea. Most likely fever and leukocytosis secondary to acute left hip fracture, inflammation,
pain.
This am: temperature 100.2, WBC downtrended to 10.5.
- Blood cx, MRSA screen pending
- Mgmt of L hip fracture as above
#Chronic
- Lewy body dementia - continue donepezil, glycopyrrolate
- Hx upper GI bleed - continue pantoprazole
#Global
- DVT ppx: lovenox (last dose tonight, holding tmrw am)
- Diet: regular, NPO at midnight; speech consulted for aspiration risk
- Code: full
- Dispo: lives at home w in 2-story home; likely rehab post-op prior to home; pending PT/OT eval post-op & case mgmt
Anticipated Discharge: > 48 hours
Subjective/Interval History
-
Date of Service: January 05, 2025
Patient somnolent, lying in bed this morning. at bedside. Patient alert able, can give one-word answers, but primarily not conversant/not responsive. Per , he is somewhat more conversant at baseline. Denies any severe pain in left hip.
Aware of as needed pain meds and ability to ask for them. Patient has been urinating. Has not had any bowel movements since admission. had just ordered him a breakfast of primarily soft foods, which she states is what he eats at home.
Objective Data
-
Labs:
Laboratory Results
01/05/25
05:49
WBC 10.5
Hgb 14.2
Hct 40.6
Plt Count 232
Sodium 135
Potassium 4.3
Chloride 103
Carbon Dioxide 26
BUN 22 H
Creatinine 0.7
Glucose 108 H
Calcium 9.0
Total Bilirubin 2.7 H
AST 26
ALT 22
Alkaline Phosphatase 83
Vital Signs:
Vital Signs
Temp Pulse Resp BP Pulse Ox
100.2 F 83 18 149/81 92
01/04/25 23:41 01/04/25 23:41 01/04/25 23:41 01/04/25 23:41 01/04/25 23:41
Review of Systems
-
Unable to obtain full review of systems at this time due to: Acuity and Patient Non-verbal
History Source: Family
All other systems: Reviewed and negative
Physical Exam
-
General: Well Developed, Well Nourished and Appears in Distress
HEENT: Normocephalic, Atraumatic and Anicteric
Respiratory: Non Labored Respirations
Cardiac: Regular Rhythm
GI: Nondistended
Musculoskeletal: No Cyanosis, No Edema and Other (Left leg turned outward)
Skin: Warm and Dry
Neuro: Awake
Psych: Agitated
Data Reviewed
-
Total Time Spent with Patient (in minutes): 10
Critical Care Time (in minutes): 30
Labs: Labs Reviewed by me
[2025-01-05 08:00] VITALS: BP 113/64
[2025-01-05] MEDS: TYLENOL 650 MG PO ×4 (08:56→21:14)
[2025-01-05] MEDS: ROBINUL 2 MG PO ×2 (08:57→21:15)
[2025-01-05] MEDS: PROTONIX 40 MG PO (08:57)
[2025-01-05] MEDS: ROXICODONE 5 MG PO (08:57)
--- NOTE | 2025-01-05 09:12 | CON.ORTHO ---
Consultation
-
Date/Time Consultation Requested: 01/04/2025; time unknown
Date/Time Consultation Performed: 01/05/2025; 0730
Requesting Provider: unknown
Performing Provider: Nida Diaz PA-C for Dr. Pravez Aleman
Reason for Consultation: Left femur fracture
Consultation - Orthopedics
History
Mr. Quintero is a 69 year old male with PMH of Lewy body dementia, GERD, H/O Schatzki's ring seen today for his left hip. His was present at the bedside and provided the history. Patient was sleeping soundly, so I did not disturb. Patient's
reports that they were walking upstairs when she heard a thud behind her. She turned around and found Eliceo on the ground. She was able to help him up, and he was initially complaining of inner thigh pain, so she figured he may has strained a
muscle. He slept through the night without incident, but unfortunately, he was unable to put weight on the leg the following morning. This prompted them to be seen at ED. X-rays in the ED revealed a femoral neck fracture. He has not complained of
pain elsewhere.
Allergies / Home Medications
Allergy/AdvReac Type Severity Reaction Status Date / Time
No Known Allergies Allergy Verified 10/30/24 21:04
�Medication �Instructions �Recorded
donepezil 23 mg tablet 23 mg PO HS Neurological Condition 06/16/24
Respite Gummy 1 gummy PO TID Supplement 01/04/25
glycopyrrolate 2 mg tablet 2 mg PO BID Neurological Condition 01/04/25
pantoprazole 40 mg tablet,delayed 40 mg PO DAILY Gastrointestinal 01/04/25
release Issue
Vital Signs / Lab Results
Temp Pulse Resp BP Pulse Ox
98.8 F 70 16 113/64 94
01/05/25 08:00 01/05/25 08:00 01/05/25 08:00 01/05/25 08:00 01/05/25 08:00
01/05/25 05:49
01/05/25 05:49
XR Left Hip IMPRESSION:
1. ACUTE DISPLACED SUBCAPITAL FRACTURE of the LEFT FEMORAL NECK.
2. Mild bilateral osteoarthritis of the hips.
3. Severe right-sided facet joint arthrosis at L5/S1.
Directed exam of the left lower extremity reveals no obvious erythema, ecchymosis or edema. Leg resting in external rotation. No significant tenderness about the hip. Thigh soft and compressible. Calf soft and nontender. Patient able to dorsiflex
ankle with light touch. NVID.
Assessment / Plan
Left femoral neck fracture
--Unfortunately, Eliceo sustained a femoral neck fracture in his fall. I recommend proceeding with a left hip hemiarthroplasty. The risks, benefits, alternatives, recovery process and potential complications were discussed in detail wtih patient's
. She verbalized understanding and would like to proceed with surgery. Surgical and blood consent signed and on patient chart. We plan to proceed with OR tomorrow under the direction of Dr. Aleman or Dr. Puri.
--NWB to LLE until surgery.
--Patient may eat today. NPO after midnight for OR tomorrow.
--Pain control prn.
--Abx and irrigation ordered to OR.
--T+S completed.
--Lovenox will need to be stopped 12 hours prior to surgery. Last dose tonight.
--Orthopedics will continue to follow along.
--- NOTE | 2025-01-05 12:54 | PTOTSP ---
Dysphagia Evaluation:
Patient presents with mildly prolonged oral stage of swallowing but functional to continue oral diet below. No overt s/s of aspiration observed during bedside evaluation. Given PMH (Lewy body dementia, GERD, H/O Schatzki's ring), cannot rule out
silent aspiration, esphogeal dysphagia, bottom-up aspiration at bedside.
Recommendations:
1. Regulars, Thins
2. Medications as best tolerated.
3. Full assistance/supervision during meals.
4. Strategies: PO only when awake/alert, single sips/small bites, slowed rate of eating, alternating liquid washes, reflux precautions.
5. ST will sign off. Reconsult if any changes in current presentation/diet tolerance.
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
--- NOTE | 2025-01-05 14:37 | CM ---
CM spoke with [facility] with report of safety concerns. CM updated biomedical scientist.
[2025-01-05 16:00] VITALS: BP 144/84
[2025-01-05] MEDS: LOVENOX 40 MG SC (18:23)
[2025-01-05] MEDS: ARICEPT 10 MG PO (21:15)
[2025-01-05 23:27] VITALS: BP 147/83
[2025-01-06] VITALS (12 sets, daily range): BP systolic 121–156; BP diastolic 71–93; PULSE 94–127; O2SAT 94
[2025-01-06] MEDS: TYLENOL PO ×3 (00:14→12:18)
--- NOTE | 2025-01-06 02:29 | DOWNTIME ---
There was a [employer] Inspector Downtime on 01/06/2025 from 0100 to 01/06/2025 at 0215. Downtime documentation of patient's care, including medication administrations, has been reconciled in the electronic record per guidelines. Refer to the
patient's paper chart under the miscellaneous tab to see printed paper medication records and downtime forms.
[2025-01-06] MEDS: TYLENOL 650 MG PO ×3 (04:01→20:42)
--- NOTE | 2025-01-06 07:27 | W.PN.UPDATE ---
Update Note
Progress Note Update
Mr. Quintero is resting comfortably in bed this morning, and denies any pain in the hip at present. He is scheduled for a left hip hemiarthroplasty today under the direction of Dr. Puri. NPO until surgery. Orthopedics will continue to follow along.
--- NOTE | 2025-01-06 07:55 | W.PN.HOSP.TC ---
Today's Communication/Plan
-
- Awaiting case mgmt eval for dispo
- Advance diet post-op
- Post-op mgmt per ortho
- Wound care for sacral ulcer
Assessment / Plan
Assessment / Plan
Patient is a 69yo M with a pmh notable for Lewy body dementia who presents following a fall at home with worsening left hip pain, found to have fracture of L femoral neck.
#Displaced subcapital fracture of the L femoral neck
Hip xray (01/04) demonstrating acute displaced subcapital L femoral neck fracture. Patient had fall at home on 01/03. CT head negative for ICH. POD#0 s/p L hip hemiarthroplasty (01/06).
- Continue pain management: standing tylenol 650mg q4h; oxycodone 5 mg q4hr PRN
- Appreciate orthopedic surgery post-op recs
#Fever, resolved
#Leukocytosis, resolved
Fever 100.8 on presentation, leukocytosis 12.2. Patient with no suspected source of infection; CXR negative, UA negative, no abdominal tenderness, no diarrhea. Most likely fever and leukocytosis secondary to acute left hip fracture, inflammation,
pain. Leukocytosis & fever have resolved as of 01/05. Blood cx with no growth in 24hr.
- MRSA screen pending
- Mgmt of L hip fracture as above
#Sacral decubitus pressure ulcer
Stage 1 sacrum pressure injury noted by RN. Likely 2/2 patient's limited ambulatory status & mobility at home in s/o Lewy body dementia.
- Wound care inpt
#Chronic
- Lewy body dementia - continue donepezil, glycopyrrolate
- Hx upper GI bleed - continue pantoprazole
#Global
- DVT ppx: lovenox (holding this am before surgery)
- Diet: restart regular diet post-op; speech consulted for aspiration risk
- Code: full
- Dispo: lives at home w in 2-story home; likely rehab post-op prior to home; pending PT/OT eval post-op & case mgmt; case mgmt reviewing safety of home living situation
Anticipated Discharge: 24 - 48 hours
Subjective/Interval History
-
Date of Service: January 06, 2025
Pt asleep, not arousable after coming back from OR this am post-anesthesia. at bedside.
Objective Data
-
Labs:
Laboratory Results
01/06/25
06:53
WBC Pending
Hgb Pending
Hct Pending
Plt Count Pending
Sodium Pending
Potassium Pending
Chloride Pending
Carbon Dioxide Pending
BUN Pending
Creatinine Pending
Glucose Pending
Calcium Pending
Total Bilirubin Pending
AST Pending
ALT Pending
Alkaline Phosphatase Pending
Vital Signs:
Vital Signs
Temp Pulse Resp BP Pulse Ox
98.5 F 90 16 147/83 96
01/05/25 23:27 01/05/25 23:27 01/05/25 23:27 01/05/25 23:27 01/05/25 23:27
Review of Systems
-
Unable to obtain full review of systems at this time due to: Acuity
Physical Exam
-
General: Well Developed, Well Nourished and Other (asleep, not arousable)
HEENT: Normocephalic, Atraumatic and Anicteric
Respiratory: Non Labored Respirations
Cardiac: Regular Rhythm
GI: Nondistended
Musculoskeletal: Other (bandage on L posterior hip; area surrounding clean, dry, without erythema or drainage)
Skin: Warm, Dry, Ulcers (stage 1 decubitus pressure ulcer on sacrum ) and Other (bruising around L hip )
Neuro: Other (asleep, not arousable post-op)
Data Reviewed
-
Total Time Spent with Patient (in minutes): 5
Critical Care Time (in minutes): 20
Diagnostic Radiology: Report Reviewed by me
Labs: Labs Reviewed by me
[2025-01-06 08:03] LABS: Hematocrit 41.2 % (39.0-52.0); Hemoglobin 14.3 g/dL (13.0-18.0); Mean Corp Hgb Conc. 34.7 g/dL (33.0-37.0); Mean Corpuscular Volume 82.2 fL (80.0-94.0); Nucleated Red Blood Cells % 0 % (-); Platelet Count 236 10^3/uL (130-400); Red Cell Dist. Width 12.1 % (11.5-14.5)
[2025-01-06 08:26] LABS: ALT (SGPT) 21 U/L (0-50); AST (SGOT) 24 U/L (17-59); Albumin 3.9 g/dl (3.5-5.0); Alkaline Phosphatase 75 U/L (38-126); Blood Urea Nitrogen 18 mg/dl (9-20); Calcium 8.9 mg/dl (8.4-10.2); Carbon Dioxide 29 mmol/L (22-30); Chloride 98 mmol/L (98-107); Estimated Creatinine Clearance 90 ml/min; Glucose 101 mg/dl (70-99); Potassium 4.2 mmol/L (3.5-5.1); Sodium 132 mmol/L (135-145); Total Protein 6.0 g/dl (6.3-8.2); eGFR > 60.00
[2025-01-06] MEDS: PROTONIX PO (08:49)
[2025-01-06] MEDS: ROBINUL PO (08:49)
--- NOTE | 2025-01-06 11:02 | CM ---
Addendum entered by Fina Hunt RN 01/06/25 13:58:
Yu London from [facility] out to see patient. Per Yu, she spoke with the patient's spouse at the bedside and was informed that there was a family meeting last night with the children and all are in agreement with SNF/rehab prior to
transitioning home. Yu will reach out to the patient's daughter for further information.
Original Note:
Reviewed the chart notes and spoke with the patient's spouse at the bedside. Patient off floor for surgery. CM continues to be available to patient/family and is monitoring medical plan for needs at discharge.
Plan: Discharge plans will depend on the patient's progress.
--- NOTE | 2025-01-06 12:02 | PN.CDI ---
CDI
- -
CDI:
Physician Documentation Request
Admit Date: 01/04/25 16:03
Dear Doctor,
Please review the following and provide your response in the progress notes.
Clinical Indicators:
- RN skin assessments indicate Stage 1 sacrum pressure injury, POA
Physician documentation of the type and location of wounds is required for compliant documentation. Based on the above clinical findings and your assessment, please provide the following in your progress note:
1. Location of the ulcer/wound, including laterality.
2. Type (etiology) of ulcer/wound:
- Diabetic ulcer
- Arterial (ischemic) ulcer
- Traumatic wound
- Venous stasis ulcer
- Pressure (decubitus) ulcer
- Other
Use of terms such as suspected, likely, concern for, or probable (associated with a specific diagnosis that is being evaluated, monitored, or treated as if it exists) are acceptable and can be coded in the inpatient setting, when documented at the
time of discharge.
Thank you,
Marbella Cowan RN
CDI Specialist
Please use your independent medical judgment in providing your response.
*Source: National Pressure Ulcer Advisory Panel (NPUAP)
[2025-01-06 14:47] LABS: Magnesium 2.0 mg/dl (1.6-2.3)
[2025-01-06] MEDS: ANCEF 5 IV (16:52)
[2025-01-06] MEDS: ROBINUL 2 MG PO (20:42)
[2025-01-06] MEDS: ARICEPT 10 MG PO (20:42)
[2025-01-06] MEDS: ROXICODONE 5 MG PO (20:59)
[2025-01-06] MEDS: SENOKOT-S 1 TABLET PO (21:00)
[2025-01-07] VITALS (7 sets, daily range): BP systolic 126–156; BP diastolic 67–85; PULSE 79; O2SAT 98
[2025-01-07] MEDS: TYLENOL PO ×4 (01:21→13:05)
[2025-01-07] MEDS: FLUSH (NSS) 2 FLUSH IV ×2 (01:21→19:53)
[2025-01-07] MEDS: ANCEF 5 IV (01:21)
--- NOTE | 2025-01-07 06:28 | PTCARENOTE ---
At start of shift patient's HR tachy in 120's with burst to 150's. RN to room to find patient restless and in pain. Roxicodone as per prn order. HR returned tobaseline and patient sleeping quietly after. Labs for am per order. Reviewed with
FIGURE CLERK, covering floor.
--- NOTE | 2025-01-07 06:59 | W.PN.ORTHO ---
Today's Communication / Plan
-
PT/OT
Weightbearing as tolerated with walker
Observe posterior hip precautions/abductor pillow while in bed
Observe hemoglobin
Lovenox/mechanical devices for DVT prophylaxis
Skin clip removal 2 weeks postop
Follow-up with orthopedics 4 weeks postop
Assessment
.
Distal Motor Intact: Yes
Dressing:
Clean, dry and intact.
Plan
.
Surgery / Date: L hip hemiarthroplasty 01/06 Ritting
DVT Prophylaxis: Lovenox
Activity:
Out of bed.
PT/OT
Discharge Plan: SNF
Subjective
.
.:
Patient resting comfortably.
Vital Signs and Labs
.
Vital Signs and Labs:
Temp Pulse Resp BP Pulse Ox
98.6 F 78 16 129/85 98
01/07/25 03:24 01/07/25 03:24 01/07/25 03:24 01/07/25 03:24 01/07/25 03:24
PT 14.8 Sec (11.4-14.6) H 01/04/25 12:10
INR 1.13 01/04/25 12:10
--- NOTE | 2025-01-07 07:30 | W.PN.HOSP.TC ---
Today's Communication/Plan
-
- Awaiting discharge recs
- Follow-up w ortho in 4 weeks
- PT/OT nonweightbearing w walker
- F/u echo today
Assessment / Plan
Assessment / Plan
Patient is a 69yo M with a pmh notable for Lewy body dementia who presents following a fall at home with worsening left hip pain, found to have fracture of L femoral neck, now recovering post-op.
#Displaced subcapital fracture of the L femoral neck
Hip xray (01/04) demonstrating acute displaced subcapital L femoral neck fracture. Patient had fall at home on 01/03. CT head negative for ICH. POD#1 s/p L hip hemiarthroplasty (01/06).
- Continue pain management: standing tylenol 650mg q4h; oxycodone 5 mg q4hr PRN
- Appreciate orthopedic surgery post-op recs
- PT/OT; weightbearing as tolerated with walker
- Monitor Hgb
- Remove skin clip 2 weeks post-op
- Follow-up appt w ortho 4 weeks post-op
#NSVT
Pt with episodes of NSVT in PACU on 01/06.
- Pending echo
- Continue tele
- Keep Mg>2, K>4
#Fever, resolved
#Leukocytosis, resolved
Fever 100.8 on presentation, leukocytosis 12.2. Patient with no suspected source of infection; CXR negative, UA negative, no abdominal tenderness, no diarrhea. Most likely fever and leukocytosis secondary to acute left hip fracture, inflammation,
pain. Leukocytosis & fever have resolved as of 01/05. Blood cx with no growth in 24hr. MRSA screen negative.
- Mgmt of L hip fracture as above
#Sacral decubitus pressure ulcer
Stage 1 sacrum pressure injury noted by RN. Likely 2/2 patient's limited ambulatory status & mobility at home in s/o Lewy body dementia.
- Wound care inpt
#Constipation
Pt hasn't had BM as of 01/07.
- Schedule senna bid
#Chronic
- Lewy body dementia - continue donepezil, glycopyrrolate
- Hx upper GI bleed - continue pantoprazole
#Global
- DVT ppx: lovenox & SCDs
- Diet: regular
- Code: full
- Dispo: lives at home w in 2-story home; likely rehab post-op prior to home; pending PT/OT eval post-op & case mgmt; case mgmt reviewing safety of home living situation
Anticipated Discharge: Within 24 hours
Subjective/Interval History
-
Date of Service: January 07, 2025
Patient more awake/alert this am compared to other days. Making eye contact and responding in one-word answers. at bedside. Denies pain in L hip. Has been eating well, good appetite. No n/v. Urinating post-op. Has not had BM post-op.
Objective Data
-
Labs:
Laboratory Results
01/07/25
06:51
WBC Pending
Hgb Pending
Hct Pending
Plt Count Pending
Sodium Pending
Potassium Pending
Chloride Pending
Carbon Dioxide Pending
BUN Pending
Creatinine Pending
Glucose Pending
Calcium Pending
Vital Signs:
Vital Signs
Temp Pulse Resp BP Pulse Ox
98.6 F 78 16 129/85 98
01/07/25 03:24 01/07/25 03:24 01/07/25 03:24 01/07/25 03:24 01/07/25 03:24
I&O
01/06/25 01/07/25 01/08/25
06:59 06:59 06:59
Intake Total 220 / 220
Balance 220 / 220
Review of Systems
-
History Source: Patient and Family
All other systems: Reviewed and negative
Physical Exam
-
General: Well Developed, Well Nourished, Comfortable and Conversant (one-word answers )
HEENT: Normocephalic, Atraumatic and Anicteric
Respiratory: Non Labored Respirations
Cardiac: Regular Rhythm
GI: Nondistended
Musculoskeletal: Other (bandage on L posterior hip; area surrounding clean, dry, without erythema or drainage; bandages/pillows around legs )
Skin: Warm, Dry, Ulcers (stage 1 decubitus pressure ulcer on sacrum ) and Other (bruising around L hip )
Neuro: Other (asleep, not arousable post-op)
Data Reviewed
-
Total Time Spent with Patient (in minutes): 10
Critical Care Time (in minutes): 25
Labs: Labs Reviewed by me
[2025-01-07 07:38] LABS: Blood Urea Nitrogen 21 mg/dl (9-20); Calcium 9.0 mg/dl (8.4-10.2); Carbon Dioxide 27 mmol/L (22-30); Chloride 101 mmol/L (98-107); Estimated Creatinine Clearance 90 ml/min; Glucose 131 mg/dl (70-99); Hematocrit 39.7 % (39.0-52.0); Hemoglobin 13.8 g/dL (13.0-18.0); Magnesium 2.1 mg/dl (1.6-2.3); Mean Corp Hgb Conc. 34.8 g/dL (33.0-37.0); Mean Corpuscular Volume 83.4 fL (80.0-94.0); Platelet Count 256 10^3/uL (130-400); Potassium 4.5 mmol/L (3.5-5.1); Red Cell Dist. Width 11.9 % (11.5-14.5); Sodium 133 mmol/L (135-145); eGFR > 60.00
--- NOTE | 2025-01-07 09:00 | CM ---
Addendum entered by Mami Schwartz 01/07/25 10:00:
[facility], [facility] & [facility]
referrals added in careport
PLAN: SNF, pending bed availability when stable, will need ins auth
Original Note:
spoke with Nadine regarding SNF options
medicare.gov list given to her for her review
explained will need to also obtain ins auth once bed secured
will get back to CM regarding referrals to enter in care[facility]
PT rec SNF - family agreeable
followed by Santhosh visited patient onsite (see note yesterday)
PLAN: SNF, CM to Follow up with for referral options
[2025-01-07] MEDS: ROXICODONE 5 MG PO ×2 (10:20→17:21)
[2025-01-07] MEDS: TYLENOL 650 MG PO ×3 (10:20→21:20)
[2025-01-07] MEDS: ROBINUL 2 MG PO ×2 (10:20→19:52)
[2025-01-07] MEDS: PROTONIX 40 MG PO (10:20)
[2025-01-07] MEDS: LOVENOX 40 MG SC (17:18)
[2025-01-07] MEDS: SENOKOT-S 1 TABLET PO (19:53)
[2025-01-07] MEDS: ARICEPT 10 MG PO (21:20)
[2025-01-08] VITALS (8 sets, daily range): BP systolic 119–163; BP diastolic 60–83; PULSE 79–84; O2SAT 97
[2025-01-08] MEDS: TYLENOL PO ×2 (00:37→03:55)
[2025-01-08 06:36] LABS: Hematocrit 37.4 % (39.0-52.0); Hemoglobin 13.1 g/dL (13.0-18.0); Mean Corp Hgb Conc. 35.0 g/dL (33.0-37.0); Mean Corpuscular Volume 84.6 fL (80.0-94.0); Platelet Count 260 10^3/uL (130-400); Red Cell Dist. Width 11.9 % (11.5-14.5)
--- NOTE | 2025-01-08 07:29 | W.PN.HOSP.TC ---
Today's Communication/Plan
-
- Await SNF placement
Assessment / Plan
Assessment / Plan
Patient is a 69yo M with a pmh notable for Lewy body dementia who presents following a fall at home with worsening left hip pain, found to have fracture of L femoral neck, now recovering post-op.
#Displaced subcapital fracture of the L femoral neck
Hip xray (01/04) demonstrating acute displaced subcapital L femoral neck fracture. Patient had fall at home on 01/03. CT head negative for ICH. POD#1 s/p L hip hemiarthroplasty (01/06).
- Continue pain management: standing tylenol 650mg q4h; oxycodone 5 mg q4hr PRN
- Continue WBAT B/L LEs on walker
- PT/OT, THPs x 6 weeks
- Dressing to remain 7-10 days
- Pain control, ice to the hip as needed
- [place] out 2 weeks (SNF or office)
- If wilder removed at SNF outpatient Ortho follow-up in 4 weeks
#NSVT
Pt with episodes of NSVT in PACU on 01/06. Echo 01/07: EF 50-55%, normal LV size, normal atria size, mild MR, trace TR, PAP 24mmhg, no change from 2020 echo. M, K>4 today.
- Continue tele
- Keep Mg>2, K>4
#Fever, resolved
#Leukocytosis, resolved
Fever 100.8 on presentation, leukocytosis 12.2. Patient with no suspected source of infection; CXR negative, UA negative, no abdominal tenderness, no diarrhea. Most likely fever and leukocytosis secondary to acute left hip fracture, inflammation,
pain. Leukocytosis & fever have resolved as of 01/05. Blood cx with no growth in 24hr. MRSA screen negative.
- Mgmt of L hip fracture as above
#Sacral decubitus pressure ulcer
Stage 1 sacrum pressure injury noted by RN. Likely 2/2 patient's limited ambulatory status & mobility at home in s/o Lewy body dementia.
- Wound care inpt
#Constipation
Pt hasn't had BM as of 01/07.
- Schedule senna bid
#Chronic
- Lewy body dementia - continue donepezil, glycopyrrolate
- Hx upper GI bleed - continue pantoprazole
#Global
- DVT ppx: lovenox
- Diet: regular
- Code: full
- Dispo: lives at home w in 2-story home; case mgmt reviewing safety of home living situation; awaiting insurance auth for rehab facility
Anticipated Discharge: Within 24 hours
Subjective/Interval History
-
Date of Service: January 08, 2025
Patient without at bedside today. Sleeping, but easily arousable. Speaking mostly in 1-2 word whispered sentences, but responsive/alert. Denies any pain. Cannot remember whether or not he has had a bowel movement in the last 24 hours.
Denies any nausea/vomiting. Says he has been eating as regular.
Objective Data
-
Labs:
Laboratory Results
01/08/25
06:01
WBC 9.6
Hgb 13.1
Hct 37.4 L
Plt Count 260
Sodium Pending
Potassium Pending
Chloride Pending
Carbon Dioxide Pending
BUN Pending
Creatinine Pending
Glucose Pending
Calcium Pending
Vital Signs:
Vital Signs
Temp Pulse Resp BP Pulse Ox
98.8 F 79 17 137/60 97
01/08/25 03:24 01/08/25 03:24 01/08/25 03:24 01/08/25 03:24 01/08/25 03:24
I&O
01/07/25 01/08/25 01/09/25
06:59 06:59 06:59
Intake Total 220 / 220 360 / 360
Balance 220 / 220 360 / 360
Review of Systems
-
Unable to obtain full review of systems at this time due to: Dementia
History Source: Patient
All other systems: Reviewed and negative
Physical Exam
-
General: Well Developed, Well Nourished, Comfortable and Conversant (one-word answers )
HEENT: Normocephalic, Atraumatic and Anicteric
Respiratory: Non Labored Respirations
Cardiac: Regular Rhythm
GI: Nondistended
Musculoskeletal: Other (bandage on L posterior hip; area surrounding clean, dry, without erythema or drainage; bandages/pillows around legs )
Skin: Warm, Dry and Ulcers (stage 1 decubitus pressure ulcer on sacrum )
Data Reviewed
-
Total Time Spent with Patient (in minutes): 10
Critical Care Time (in minutes): 25
Labs: Labs Reviewed by me
[2025-01-08 07:30] LABS: Blood Urea Nitrogen 22 mg/dl (9-20); Calcium 9.0 mg/dl (8.4-10.2); Carbon Dioxide 31 mmol/L (22-30); Chloride 101 mmol/L (98-107); Estimated Creatinine Clearance 90 ml/min; Glucose 103 mg/dl (70-99); Magnesium 2.0 mg/dl (1.6-2.3); Potassium 4.5 mmol/L (3.5-5.1); Sodium 133 mmol/L (135-145); eGFR > 60.00
--- NOTE | 2025-01-08 09:22 | W.PN.ORTHO ---
Today's Communication / Plan
-
Appreciate the primary team, continue treatment
Dispo likely SNF, appreciate CM
Continue WBAT B/L LEs on walker
PT/OT, THPs x 6 weeks
Lovenox for DVT ppx, or per primary
Dressing to remain 7-10 days
Pain control, ice to the hip as needed
[place] out 2 weeks (SNF or office)
If wilder removed at SNF outpatient Ortho follow-up in 4 weeks
Ortho sign off for now, please reengage as necessary
Assessment
.
Distal Motor Intact: Yes
Dressing:
Clean, dry and intact. Primaseal in place left hip, minimal strikethrough
Assessment:
POD#2 Left hip Gus
Overall doing/feeling well
Calf soft, nontender
Plan
.
Surgery / Date: Left Hip Gus/ Jan 14 ([facility])
DVT Prophylaxis: Lovenox
Activity:
Out of bed. WBAT LLE on walker
PT/OT, THPs x 6 weeks
Discharge Plan: SNF (appreciate CM) and Other
Subjective
.
.:
Patient resting comfortably. No significant left hip pain
Vital Signs and Labs
.
Vital Signs and Labs:
Lab Results
01/08/25 06:01
01/08/25 06:01
Temp Pulse Resp BP Pulse Ox
98.6 F 69 16 122/71 98
01/08/25 07:17 01/08/25 07:17 01/08/25 07:17 01/08/25 07:17 01/08/25 07:17
PT 14.8 Sec (11.4-14.6) H 01/04/25 12:10
INR 1.13 01/04/25 12:10
[2025-01-08] MEDS: ROBINUL 2 MG PO ×2 (10:12→20:25)
[2025-01-08] MEDS: SENOKOT-S 1 TABLET PO ×2 (10:13→20:25)
[2025-01-08] MEDS: TYLENOL 650 MG PO ×5 (10:13→23:15)
[2025-01-08] MEDS: PROTONIX 40 MG PO (10:13)
[2025-01-08] MEDS: MIRALAX 17 GRAMS PO (12:45)
[2025-01-08] MEDS: DULCOLAX 10 MG PO (12:45)
--- NOTE | 2025-01-08 15:51 | CM ---
Addendum entered by Avril Drake 01/08/25 16:24:
Plan: Discharge to [facility] SNF tomorrow, 01/09, pending Authorization approval
Report #[id number]

Addendum entered by Avril Drake 01/08/25 16:20:
Authorization for SNF sent via [employer]. [facility] [employer] will follow up on status in AM
Original Note:
Spoke with via phone; explained that initial referrals sent were not accepted. Aditional SNF site preferences identified: [facility], [facility], [facility], and [facility]; Referrals sent via [facility].
[facility] able to accept patient pending auth approval. Bed available tomorrow. notified by phone; and agreeable with facility
Plan: Discharge to [facility] SNF pending Authorization approval
[2025-01-08] MEDS: LOVENOX 40 MG SC (16:28)
[2025-01-08] MEDS: ARICEPT 10 MG PO (21:23)
[2025-01-09] VITALS (7 sets, daily range): BP systolic 120–140; BP diastolic 60–73; PULSE 85
[2025-01-09] MEDS: TYLENOL 650 MG PO ×6 (03:16→23:05)
--- NOTE | 2025-01-09 07:27 | W.PN.HOSP.TC ---
Today's Communication/Plan
-
- Awaiting insurance auth for SNF
Assessment / Plan
Assessment / Plan
Patient is a 69yo M with a pmh notable for Lewy body dementia who presents following a fall at home with worsening left hip pain, found to have fracture of L femoral neck, now recovering post-op & awaiting SNF.
#Displaced subcapital fracture of the L femoral neck
Hip xray (01/04) demonstrating acute displaced subcapital L femoral neck fracture. Patient had fall at home on 01/03. CT head negative for ICH. POD#1 s/p L hip hemiarthroplasty (01/06).
- Continue pain management: standing tylenol 650mg q4h; oxycodone 5 mg q4hr PRN
Ortho recs:
- Continue WBAT B/L LEs on walker
- PT/OT, THPs x 6 weeks
- Dressing to remain 7-10 days
- Pain control, ice to the hip as needed
- [place] out 2 weeks (SNF or office)
- If wilder removed at SNF outpatient Ortho follow-up in 4 weeks
#NSVT
Pt with episodes of NSVT in PACU on 01/06. Echo 01/07: EF 50-55%, normal LV size, normal atria size, mild MR, trace TR, PAP 24mmhg, no change from 2020 echo. Likely post-op induced, no structural or long-term issue.
- Keep Mg>2, K>4
#Sacral decubitus pressure ulcer
Stage 1 sacrum pressure injury noted by RN. Likely 2/2 patient's limited ambulatory status & mobility at home in s/o Lewy body dementia.
- Wound care inpt
#Fever, resolved
#Leukocytosis, resolved
Fever 100.8 on presentation, leukocytosis 12.2. Patient with no suspected source of infection; CXR negative, UA negative, no abdominal tenderness, no diarrhea. Most likely fever and leukocytosis secondary to acute left hip fracture, inflammation,
pain. Leukocytosis & fever have resolved as of 01/05. Blood cx with no growth in 24hr. MRSA screen negative.
- Mgmt of L hip fracture as above
#Chronic
- Lewy body dementia - continue donepezil, glycopyrrolate
- Hx upper GI bleed - continue pantoprazole
#Global
- DVT ppx: lovenox
- Diet: regular
- Code: full
- Dispo: lives at home w in 2-story home; case mgmt reviewing safety of home living situation; accepted at [facility], pending insurance auth
Anticipated Discharge: 24 - 48 hours
Subjective/Interval History
-
Date of Service: January 09, 2025
Patient states that his pain is well-controlled. at bedside. Patient says that he had a bowel movement yesterday. denies. They understand plan of waiting for SNF placement.
Objective Data
-
Vital Signs:
Vital Signs
Temp Pulse Resp BP Pulse Ox
98.7 F 69 16 139/60 97
01/09/25 03:14 01/09/25 03:14 01/09/25 03:14 01/09/25 03:14 01/09/25 03:14
I&O
01/08/25 01/09/25 01/10/25
06:59 06:59 06:59
Intake Total 360 / 360 720 / 720
Balance 360 / 360 720 / 720
Review of Systems
-
Unable to obtain full review of systems at this time due to: Dementia
History Source: Patient and Family
All other systems: Reviewed and negative
Physical Exam
-
General: Well Developed, Well Nourished, Comfortable and Conversant (one-word answers )
HEENT: Normocephalic, Atraumatic and Anicteric
Respiratory: Non Labored Respirations
Cardiac: Regular Rhythm
GI: Nondistended
Musculoskeletal: Other (bandage on L posterior hip; area surrounding clean, dry, without erythema or drainage; bandages/pillows around legs )
Skin: Warm, Dry and Ulcers (stage 1 decubitus pressure ulcer on sacrum )
Data Reviewed
-
Total Time Spent with Patient (in minutes): 10
Critical Care Time (in minutes): 20
[2025-01-09] MEDS: ROBINUL 2 MG PO ×2 (09:28→19:40)
[2025-01-09] MEDS: PROTONIX 40 MG PO (09:30)
[2025-01-09] MEDS: SENOKOT-S 1 TABLET PO ×2 (09:30→19:40)
--- NOTE | 2025-01-09 14:10 | CM ---
Addendum entered by Adriana Bello 01/10/25 08:24:
clarification patient can be transferred when auth is confirmed.
Original Note:
CM checked in availity and no auth is listed, CM called to [facility] resource person, confirmed fax was sent and accepted. CM will continue to follow for discharge planning needs.
Plan; transfer to SNF pending auth confirmed.
[2025-01-09] MEDS: LOVENOX 40 MG SC (18:20)
[2025-01-09] MEDS: ARICEPT 10 MG PO (21:05)
[2025-01-10 03:02] VITALS: BP 126/74
[2025-01-10] MEDS: MIRALAX 17 GRAMS PO (03:10)
[2025-01-10] MEDS: TYLENOL 650 MG PO ×4 (03:10→20:33)
[2025-01-10] MEDS: PROTONIX 40 MG PO (07:12)
[2025-01-10] MEDS: ROBINUL 2 MG PO ×2 (07:12→20:34)
[2025-01-10] MEDS: TYLENOL PO (07:13)
[2025-01-10] MEDS: SENOKOT-S 1 TABLET PO (07:13)
--- NOTE | 2025-01-10 07:44 | W.PN.HOSP.TC ---
Today's Communication/Plan
-
- Accepted at [facility], pending insurance auth
Assessment / Plan
Assessment / Plan
Patient is a 69yo M with a pmh notable for Lewy body dementia who presents following a fall at home with worsening left hip pain, found to have fracture of L femoral neck, now recovering post-op & awaiting SNF.
#Displaced subcapital fracture of the L femoral neck
Hip xray (01/04) demonstrating acute displaced subcapital L femoral neck fracture. Patient had fall at home on 01/03. CT head negative for ICH. POD#1 s/p L hip hemiarthroplasty (01/06).
- Continue pain management: standing tylenol 650mg q4h; oxycodone 5 mg q4hr PRN
-Ortho recs:
- Continue WBAT B/L LEs on walker
- PT/OT, THPs x 6 weeks
- Dressing to remain 7-10 days
- Pain control, ice to the hip as needed
- [place] out 2 weeks (SNF or office)
- If wilder removed at SNF outpatient Ortho follow-up in 4 weeks
#Sacral decubitus pressure ulcer
Stage 1 sacrum pressure injury noted by RN. Likely 2/2 patient's limited ambulatory status & mobility at home in s/o Lewy body dementia.
- Wound care inpt
#NSVT
Pt with episodes of NSVT in PACU on 01/06. Echo 01/07: EF 50-55%, normal LV size, normal atria size, mild MR, trace TR, PAP 24mmhg, no change from 2020 echo. Likely post-op induced, no structural or long-term issue.
- Keep Mg>2, K>4
#Fever, resolved
#Leukocytosis, resolved
Fever 100.8 on presentation, leukocytosis 12.2. Patient with no suspected source of infection; CXR negative, UA negative, no abdominal tenderness, no diarrhea. Most likely fever and leukocytosis secondary to acute left hip fracture, inflammation,
pain. Leukocytosis & fever have resolved as of 01/05. Blood cx with no growth in 24hr. MRSA screen negative.
- Mgmt of L hip fracture as above
#Chronic
- Lewy body dementia - continue donepezil, glycopyrrolate
- Hx upper GI bleed - continue pantoprazole
#Global
- DVT ppx: lovenox
- Diet: regular
- Code: full
- Dispo: lives at home w in 2-story home; case mgmt reviewing safety of home living situation; accepted at [facility], pending insurance auth
Anticipated Discharge: 24 - 48 hours
Subjective/Interval History
-
Date of Service: January 10, 2025
Patient groggy this morning, but alert to questions. Not speaking in clear words, breathy answers, difficult to understand. Denies pain.
Objective Data
-
Vital Signs:
Vital Signs
Temp Pulse Resp BP Pulse Ox
98.5 F 90 15 126/74 95
01/10/25 03:02 01/10/25 03:02 01/10/25 03:02 01/10/25 03:02 01/10/25 03:02
I&O
01/09/25 01/10/25 01/11/25
06:59 06:59 06:59
Intake Total 720 / 720 240 / 240
Output Total 250 / 250
Balance 720 / 720 -10 / -10
Review of Systems
-
Unable to obtain full review of systems at this time due to: Dementia
History Source: Patient
All other systems: Reviewed and negative
Physical Exam
-
General: Well Developed, Well Nourished, Comfortable and Conversant (one-word answers )
HEENT: Normocephalic, Atraumatic and Anicteric
Respiratory: Non Labored Respirations
Cardiac: Regular Rhythm
GI: Nondistended
Musculoskeletal: Other (bandage on L posterior hip; area surrounding clean, dry, without erythema or drainage; bandages/pillows around legs )
Skin: Warm, Dry and Ulcers (stage 1 decubitus pressure ulcer on sacrum )
Data Reviewed
-
Total Time Spent with Patient (in minutes): 5
Critical Care Time (in minutes): 10
[2025-01-10 07:52] VITALS: BP 122/65
[2025-01-10 13:55] VITALS: BP 131/71; PULSE 85; O2SAT 97
[2025-01-10 15:32] VITALS: BP 128/71
--- NOTE | 2025-01-10 16:03 | CM ---
Addendum entered by Adriana Bello 01/10/25 16:16:
auth approval was for inpatient hospitalization. CM reviewed with [facility] and they will have bed tomorrow for patient if SNF auth approved.
Original Note:
Auth approved for [facility] [id number] for 01/04-01/10/25. CM called to [facility] and update provided via VM. Due to end of auth date being today. CM left for [employer] liaison Yu at [phone]. CM will continue to follow for discharge
planning needs.
Plan; SNF
[2025-01-10] MEDS: LOVENOX 40 MG SC (17:23)
[2025-01-10] MEDS: SENOKOT-S PO (20:33)
[2025-01-10] MEDS: ARICEPT 10 MG PO (20:34)
[2025-01-10 23:25] VITALS: BP 138/77
[2025-01-11] MEDS: TYLENOL 650 MG PO ×4 (00:06→16:35)
--- NOTE | 2025-01-11 07:20 | W.PN.HOSP.TC ---
Addendum entered and electronically signed by Mo Sanabria MD 01/11/25 23:02:
Attending Addendum:
I saw and evaluated the patient. I reviewed the resident�s note and agree with findings and plan as documented in the resident�s note. Sub: seen with . poor historian due to dementia. Denies pain. Per stable for dc. Full 12 point ROS
reviewed and negative except as documented Exam: Vitals reviewed in chart GEN-NAD heart RRR lungs clear abd soft Left hip incision with aquacell in place pulses intact
Plan:
#Displaced subcapital fracture of the L femoral neck
- POD#5 s/p L hip hemiarthroplasty 01/06
- Continue pain management
- Ortho recs:
- Continue WBAT
- PT/OT, THPs x 6 weeks
- Dressing to remain 7-10 days
- Pain control, ice to the hip as needed
- [place] out 2 weeks (SNF or office)
- If wilder removed at SNF outpatient Ortho follow-up in 4 weeks
#Sacral decubitus pressure ulcer
Stage 1 sacrum pressure injury noted by RN. Likely 2/2 patient's limited ambulatory status & mobility at home in s/o Lewy body dementia.
- Wound care
#NSVT
Pt with episodes of NSVT in PACU on 01/06. Echo 01/07: EF 50-55%, normal LV size, normal atria size, mild MR, trace TR, PAP 24mmhg, no change from 2020 echo. Likely post-op induced, no structural or long-term issue.
- Keep Mg>2, K>4
- resolved
#Fever, resolved
#Leukocytosis, resolved
#Chronic
- Lewy body dementia - continue donepezil, glycopyrrolate
- Hx upper GI bleed - continue pantoprazole
- DVT ppx: lovenox x 35 days
- Diet: regular
- Code: full
- Dispo: lives at home w in 2-story home; case mgmt reviewing safety of home living situation; DC to [facility]
Time spent coordinating care, DC planning, review of DC plan of care with resident, transition of care, review of records, med rec/scripts sent electronically, consults, notes, d/w consultants, nursing, family, and CM� 32 mins >50% of this time was
devoted to counseling and coordination of care
Original Note:
Today's Communication/Plan
-
Discharge to SNF today
Assessment / Plan
Assessment / Plan
This is a 69 y/o male with pmhx of Lewy body Dementia who presented to the ED on 01/04/2025 with left hip/groin pain following a fall at home on the evening of 01/03/2025 who was found to have acute displaced subcapital fracture of the left femoral
neck s/p surgery on 01/06/2025 and now stable for discharge to SNF.
Acute displaced left subcapital femoral neck fracture
-As noted on X-ray from 01/04 in the ED, due to fall at home on 01/03/2025, s/p hemiarthroplasty on 01/06/2025, now 4 days post operatively
-Per orthopedics recommendations:
--Continue weight bearing exercise as tolerated with walker assist
--Continue PT/OT for 6 weeks post operatively
--Patient will require dressings in place for 7-10 days, can have wilder removed at 2 week [facility]ryan
--Follow up in 4 weeks at outpatient orthopedics office
-Continue as needed oxycodone 5mg q4hr for pain, standing tylenol 650mg q4h
-Continue Lovenox 40mg daily for DVT prophylaxis for 4 weeks post operatively
Sacral Decubitus Pressure Ulcer
-Stage 1 sacral pressure injury noted by RN
-Likely 2/2 to patient�s limited mobility
-Continue Wound Care
Non-Sustained Supraventricular Tachycardia
-8 beats of NSVT total in the PACU with no associated symptoms or recurrence
-Echocardiogram from 01/07/2025 was stable compared to prior Echo from 2020. NSVT likely secondary to anesthesia from the surgery
-Continue telemetry while hospitalized
-Continue to monitor Magnesium and Potassium with goal to keep Mg > 2, K > 4
History of Peptic Ulcer Disease with history of Upper GI Bleed/Hematemesis
-Continue pantoprazole
-Avoid NSAID use for pain postoperatively
Lewy body Dementia
-Continue Donepezil, glycopyrrolate (Home medications)
-Continue to monitor for any signs of agitation
-Zyprexa as needed should agitation arise
-Encouraged follow up with outpatient PCP
Anticipated Discharge: Today
Subjective/Interval History
-
Date of Service: January 11, 2025
Patient was awake but minimally conversant when I arrived in the room. He is at baseline somewhat difficulty to understand, but seems to be free of pain based upon limited responses and physical exam. By nursing report this is baseline for him.
Objective Data
-
Vital Signs:
Vital Signs
Temp Pulse Resp BP Pulse Ox
97.8 F 84 17 138/77 96
01/10/25 23:25 01/10/25 23:25 01/10/25 23:25 01/10/25 23:25 01/10/25 23:25
I&O
01/10/25 01/11/25 01/12/25
06:59 06:59 06:59
Intake Total 240 / 240 840 / 840
Output Total 250 / 250 100 / 100
Balance -10 / -10 740 / 740
Review of Systems
-
Unable to obtain full review of systems at this time due to: Dementia
History Source: Patient
All other systems: Not reviewed unless documented
Physical Exam
-
General: Well Developed, Well Nourished, Comfortable and Appears Chronically Ill
HEENT: Normocephalic and Atraumatic
Respiratory: Clear to Auscultation (Physical exam limited by patient taking small, short breaths)
Cardiac: Regular Rhythm and S1/S2
GI: Soft and Normal Bowel Sounds
Skin: Warm, Dry and Other (The patient's left hip is covered by a medical bandage, unable to assess surgical site.)
Neuro: Awake and Alert
Psych: Calm and Apparent Dementia
[2025-01-11 07:40] VITALS: BP 125/62
--- NOTE | 2025-01-11 08:06 | CM ---
Addendum entered by Yu Carranza RN 01/11/25 10:34:
[facility]
Report
[phone]

Auth
[id number]
01/11-01/17
Fax Updates
[phone]
Original Note:
CM left message for Yu Almonte at [facility] regarding change in authorization.
[2025-01-11] MEDS: ROBINUL 2 MG PO (08:52)
[2025-01-11] MEDS: SENOKOT-S 1 TABLET PO (08:53)
[2025-01-11] MEDS: PROTONIX 40 MG PO (08:53)
[2025-01-11] MEDS: TYLENOL PO (13:07)
--- NOTE | 2025-01-11 13:46 | W.DCSUMMARY ---
Addendum entered and electronically signed by Mo Sanabria MD 01/11/25 23:03:
Read, reviewed, and agree. See same day progress note for additional details.
Ten Sanabria MD
Original Note:
Documented by User: Yoli Gutiérrez DO, Resident 01/11/25 13:56
Discharge Summary
Discharge Data
Date of Admission: 01/04/25
Date of Discharge: 01/11/25
-
Pending Results: No
Hospital Course
Discharging Physician: Mo Sanabria MD
Disposition : To [facility], [facility]
Primary care physician : Daphne Maria DO
Principal Discharge diagnosis : Left femoral neck fracture
Chronic Discharge diagnosis : Lewy body dementia
Hospital Course :
Patient presented from home on 01/04 with left hip/groin pain following a fall at home the evening prior. Patient denied hitting his head or having any lightheadedness/dizziness preceding fall. CT head was negative for any acute intracranial
pathology. Patient is typically ambulatory at home without assistance, per . The patient was found to be febrile (100.8) with leukocytosis (WBC 12.2). Lactic acid within normal limits. Infectious workup was negative. Hip x-ray demonstrated
acute displaced subcapital fracture of the left femoral neck.
Orthopedics was consulted and on 01/06/2025, patient underwent a left hip hemiarthroplasty. Following this surgery, patient had an episode of non-sustained ventricular tachycardia in the PACU. An echo performed on 01/07 showed no change from an Echo
in 2020 with EF of 50-55%, normal LV size, normal right atrial size, mild mitral regurgitation, trace tricuspid regurgitation, pulmonary artery pressure of 24mmHg. He was placed on telemetry and did not have any further eposes of NSVT.
Leukocytosis and fevers resolved with pain control and s/p left hip arthroplasty. Patient without any postop concerns. His pain was managed with Tylenol and as needed oxycodone. On 01/11/2025 he was found to be medially stable and ready for
discharged to SNF. Post operatively, his pain was controlled with tylenol and as needed oxycodone. He will follow up in 2 weeks for removal of his yenny, and again with orthopedics at 4 weeks. He will also continue physical therapy upon discharge
at SNF.
Important imaging findings :
X-ray hip (01/04):
1. ACUTE DISPLACED SUBCAPITAL FRACTURE of the LEFT FEMORAL NECK.
2. Mild bilateral osteoarthritis of the hips.
3. Severe right-sided facet joint arthrosis at L5/S1.
Echo (01/07):
1. Ejection fraction is 50-55% by volumetric assessment
2. Normal left ventricular size and function with an estimated ejection fraction of 50-55% by volumetric assessment. No regional wall motion abnormalities. Mild left ventricular hypertrophy. Normal diastolic function.
3. Normal right and left atrial size
4. Mild to moderate aortic insufficiency
5. Mild mitral annular calcification and mild mitral regurgitation
6. Trace tricuspid regurgitation with estimated pulmonary artery systolic pressures of 24 mmHg
7. When compared to the most recent echocardiogram from 09/01/2020, there has been no significant change
Procedure findings : N/A
Discharge Plan
-
Patient Disposition: Prison/SNF
Discharge Diagnosis/Procedures: Acute displaced left subcapital femoral neck fracture, Lewy Body Dementia, Sacral Decubitus Pressure Ulcer, Non-Sustained Supraventricular Tachycardia
Condition: Fair
Diet: As tolerated
Activity: With Walker
Additional Activity: - Continue weight-bearing activity on both legs while using walker
- Continue PT/OT, THPs for 6 weeks
Driving Restrictions: As prior to admission
Bathing Restrictions: keep dressing dry
Other Services: PT and OT
Wound Care: - Dressing on L hip to remain for 1 week
- Pain control, ice to the L hip as needed
- Yenny out in 2 weeks (at SNF or in ortho office)
- If yenny removed at SNF, follow-up with orthopedics outpatient in 4 weeks
Activity Restrictions/Additional Instructions:
- If yenny removed at SNF, follow-up with orthopedics outpatient in 4 weeks
Referrals:
Oliva Ramos CRNP [Family Provider, Family Practice] - in four to six weeks
Parvez Aleman MD [Active, Orthopedics] - in three to four weeks
Referral Note: Follow up in 4 weeks
(in 2 weeks if yenny aren't able to be removed at [facility])
Additional Discharge Medication Instructions: - For pain, take 650mg tylenol every 4 hours for the next week. You may also take oxycodone 5mg once every 4 hours if needed for severe pain (there is enough for 4 days).
- Use miralax to help you have a bowel movement, and add the bisacodyl suppository if you are not able to have a bowel movement for 2 days with the miralax.
- Continue taking your other home medications
Prescriptions:
New
bisacodyl 10 mg Suppository
10 mg DC [id number] PRN (Reason: constipation) 60 Days Qty: 30 0RF
polyethylene glycol 3350 17 gram Powder In Packet
17 g PO DAILYPRN PRN (Reason: constipation) 60 Days Qty: 30 0RF
acetaminophen 325 mg Tablet
650 mg PO Q4HWA 7 Days Qty: 84 0RF
oxycodone 5 mg Tablet
5 mg PO Q4HPRN PRN (Reason: moderate-severe pain) 4 Days Qty: 24 0RF
enoxaparin 40 mg/0.4 mL Syringe
40 mg SC QPM 28 Days Qty: 11.2 0RF
Continued
donepezil 23 mg Tablet
23 mg PO HS
glycopyrrolate 2 mg tablet
2 mg PO BID
Respite Gummy
1 gummy PO TID
pantoprazole 40 mg tablet,delayed release (DR/EC)
40 mg PO DAILY
Discharge Orders:
Discharge Patient (As Directed); Ordered 01/11/25
Ordered By: Yoli Gutiérrez
Discharge Date and Time
Discharge Date/Time: 01/11/25 16:45
Print Language: AZERI

Documented by User: Mo Sanabria MD 01/11/25 22:58
Discharge Summary
Discharge Data
Date of Admission: 01/04/25
Date of Discharge: 01/11/25
Discharge Plan
-
Patient Disposition: Prison/SNF
Discharge Diagnosis/Procedures: Acute displaced left subcapital femoral neck fracture, Lewy Body Dementia, Sacral Decubitus Pressure Ulcer, Non-Sustained Supraventricular Tachycardia
Condition: Fair
Diet: As tolerated
Activity: With Walker
Additional Activity: - Continue weight-bearing activity on both legs while using walker
- Continue PT/OT, THPs for 6 weeks
Driving Restrictions: As prior to admission
Bathing Restrictions: keep dressing dry
Other Services: PT and OT
Wound Care: - Dressing on L hip to remain for 1 week
- Pain control, ice to the L hip as needed
- [place] out in 2 weeks (at SNF or in ortho office)
- If yenny removed at SNF, follow-up with orthopedics outpatient in 4 weeks
Activity Restrictions/Additional Instructions:
- If yenny removed at SNF, follow-up with orthopedics outpatient in 4 weeks
Referrals:
Oliva Ramos CRNP [Family Provider, Family Practice] - in four to six weeks
Parvez Aleman MD [Active, Orthopedics] - in three to four weeks
Referral Note: Follow up in 4 weeks
(in 2 weeks if yenny aren't able to be removed at SNF)
Additional Discharge Medication Instructions: - For pain, take 650mg tylenol every 4 hours for the next week. You may also take oxycodone 5mg once every 4 hours if needed for severe pain (there is enough for 4 days).
- Use miralax to help you have a bowel movement, and add the bisacodyl suppository if you are not able to have a bowel movement for 2 days with the miralax.
- Continue taking your other home medications
Prescriptions:
New
bisacodyl 10 mg Suppository
10 mg DC [id number] PRN (Reason: constipation) 60 Days Qty: 30 0RF
polyethylene glycol 3350 17 gram Powder In Packet
17 g PO DAILYPRN PRN (Reason: constipation) 60 Days Qty: 30 0RF
acetaminophen 325 mg Tablet
650 mg PO Q4HWA 7 Days Qty: 84 0RF
oxycodone 5 mg Tablet
5 mg PO Q4HPRN PRN (Reason: moderate-severe pain) 4 Days Qty: 24 0RF
enoxaparin 40 mg/0.4 mL Syringe
40 mg SC QPM 28 Days Qty: 11.2 0RF
Continued
donepezil 23 mg Tablet
23 mg PO HS
glycopyrrolate 2 mg tablet
2 mg PO BID
Respite Gummy
1 gummy PO TID
pantoprazole 40 mg tablet,delayed release (DR/EC)
40 mg PO DAILY
Discharge Orders:
Discharge Patient (As Directed); Ordered 01/11/25
Ordered By: Yoli Gutiérrez
Discharge Date and Time
Discharge Date/Time: 01/11/25 16:45
Print Language: AZERI
[2025-01-11 15:29] VITALS: BP 119/67
== END 2025-01-11 16:45 | DRG 522 ==
LOC: 2 SOUTH 16:03
PROVIDERS: Emergency Medicine; Orthopaedic Surgery Hand Surgery; Student in an Organized Health Care Education/Training Program; ADMITTING PHYSICIAN Internal Medicine; ATTENDING PHYSICIAN Family Medicine; CONSULT PHYSICIAN Student in an Organized Health Care Education/Training Program; EMERGENCY PHYSICIAN Emergency Medicine; FAMILY PHYSICIAN Nurse Practitioner Family
PROC: 0SRS0JA Replacement of Left Hip Joint, Femoral Surface with Synthetic Substitute, Uncemented, Open Approach (ICD-10-PCS; 2025-01-04)
DX: S72.012A Unspecified intracapsular fracture of left femur, initial encounter for closed fracture (principal); I47.10 Supraventricular tachycardia, unspecified; I47.20 Ventricular tachycardia, unspecified; W18.30XA Fall on same level, unspecified, initial encounter; F02.80 Dementia in other diseases classified elsewhere, unspecified severity, without behavioral disturbance, psychotic disturbance, mood disturbance, and anxiety; D72.829 Elevated white blood cell count, unspecified; M16.0 Bilateral primary osteoarthritis of hip; M47.819 Spondylosis without myelopathy or radiculopathy, site unspecified; G31.83 Neurocognitive disorder with Lewy bodies; I08.0 Rheumatic disorders of both mitral and aortic valves; K21.9 Gastro-esophageal reflux disease without esophagitis; K59.00 Constipation, unspecified; L89.151 Pressure ulcer of sacral region, stage 1; Z11.52 Encounter for screening for COVID-19; Z87.11 Personal history of peptic ulcer disease; Z79.899 Other long term (current) drug therapy
CPT/HCPCS: 70450; 71045; 73502; 80048; 80053; 81003; 81015; 83605; 83735; 85025; 85027; 85610; 86850; 86900; 86901; 87040; 87070; 87502; 87811; 92610; 93005; 93306; 97110; 97116; 97163; 97167; 97530; 97535; 99285; C1776

== ENCOUNTER → 2025-01-14 11:25 | Outpatient (REF) | payer OTHER, SELFPAY ==
[2025-01-14 12:08] LABS: Hematocrit 34.8 % (39.0-52.0); Hemoglobin 11.4 g/dL (13.0-18.0); Mean Corp Hgb Conc. 32.8 g/dL (33.0-37.0); Mean Corpuscular Volume 85.5 fL (80.0-94.0); Platelet Count 417 10^3/uL (130-400); Red Cell Dist. Width 12.2 % (11.5-14.5)
[2025-01-14 12:14] LABS: ALT (SGPT) 54 U/L (0-50); AST (SGOT) 28 U/L (17-59); Albumin 3.1 g/dl (3.5-5.0); Alkaline Phosphatase 81 U/L (38-126); Blood Urea Nitrogen 26 mg/dl (9-20); Calcium 8.6 mg/dl (8.4-10.2); Carbon Dioxide 27 mmol/L (22-30); Chloride 104 mmol/L (98-107); Glucose 90 mg/dl (70-99); Magnesium 2.2 mg/dl (1.6-2.3); Potassium 4.4 mmol/L (3.5-5.1); Sodium 135 mmol/L (135-145); Total Protein 5.2 g/dl (6.3-8.2); eGFR > 60.00
== END ==
LOC: OLABWHC 11:25
PROVIDERS: ATTENDING PHYSICIAN Family Medicine
DX: S72.042A Displaced fracture of base of neck of left femur, initial encounter for closed fracture (principal)
CPT/HCPCS: 36415; 80053; 83735; 85027

== ENCOUNTER → 2025-02-15 10:37 | Outpatient (REF) | payer OTHER, SELFPAY ==
[2025-02-15 11:25] LABS: Urine Character Cloudy (Clear)
[2025-02-15 11:42] LABS: Urine Red Blood Cell 0-2 /HPF (0-2); Urine Squamous Cell None seen /LPF (Few); Urine White Cell 0-2 /HPF (0-5)
== END ==
LOC: OLABWHC 10:37
PROVIDERS: ATTENDING PHYSICIAN Family Medicine
DX: K92.2 Gastrointestinal hemorrhage, unspecified (principal); M16.0 Bilateral primary osteoarthritis of hip; M19.91 Primary osteoarthritis, unspecified site; S72.042D Displaced fracture of base of neck of left femur, subsequent encounter for closed fracture with routine healing
CPT/HCPCS: 36415; 81003; 81015; 87086